=== PATIENT | female | born 1960 | race Caucasian/White ===

== ENCOUNTER 2022-06-27 12:03 | Outpatient (CLI) | payer BC, SELFPAY ==
[2022-06-27 13:43] LABS: Chloride* 100 mmol/L (96-114)
[2022-06-27 13:44] LABS: Albumin* 4.2 g/dL (3.3-5.0); Sodium* 136 mmol/L (135-149)
[2022-06-27 13:45] LABS: Potassium* 4.2 mmol/L (3.6-5.1)
[2022-06-27 13:46] LABS: Cholesterol* 221 mg/dL (90-199)
[2022-06-27 13:47] LABS: Alanine Aminotransferase* 29 U/L (4-35); Alkaline Phosphatase* 70 U/L (40-150); Aspartate Amino Transferase* 35 U/L (12-35); Bilirubin Total* 0.6 mg/dL (0.1-1.5); Blood Urea Nitrogen* 15 mg/dL (7-30); Calcium* 9.1 mg/dL (8.4-10.6); Carbon Dioxide* 30 mmol/L (20-32); Creatinine* 0.7 mg/dL (0.5-1.5); Estimated Glomerular Filt Rate 100 ml/min; Glucose* 98 mg/dL (60-115); Total Protein* 6.6 g/dL (6.0-8.3); Triglycerides* 107 mg/dL (40-149)
[2022-06-27 13:48] LABS: HDL Cholesterol* 68 mg/dL (>=50); LDL Cholesterol Calculated 132 mg/dL (<100)
== END 2022-06-27 12:04 | disposition home or self-care (01) ==
PROVIDERS: PCP Physician Assistant Medical; Visit Provider Physician Assistant Medical
DX: Z00.00 Encounter for general adult medical examination without abnormal findings (principal); Z13.6 Encounter for screening for cardiovascular disorders
CPT/HCPCS: 80053; 80061

== ENCOUNTER 2022-06-28 14:00 | Outpatient (CLI) | payer BC, SELFPAY ==
--- NOTE | 2022-06-28 14:07 | CRLHL7_ITS ---
For Patients: As a result of the Century Cures Act, medical imaging exams and procedure reports are released immediately into your electronic medical record. You may view this report before your referring provider. If you have questions, please contact your health care provider. INDICATION: f/u thyroid nodules. Large nodule on the right has been previously biopsied and was benign 04/28/2021. COMPARISON: 04/15/2021, 05/14/2020, 06/10/2019 TECHNIQUE: Giron scale and color Doppler images were acquired of the thyroid gland. FINDINGS: Similar morphology in size of the circumscribed nodule within the midportion of the right thyroid lobe measuring 3.8 x 2.4 x 2.8 cm, previously measuring 3.6 x 2.5 x 2.9 cm. Blood flow is present within this nodule, as before. Stable hypoechoic nodule within the superior pole of the left thyroid lobe measuring 9 x 5 x 8 millimeters, previously measuring 9 x 5 x 7 millimeters. Stable cystic nodule upper pole left thyroid lobe measuring 6 x 3 x 4 millimeters. Additional hypoechoic nodule measuring 4 x 3 x 4 millimeters within the left thyroid lobe. Thyroid echotexture heterogeneous. Enlarged right thyroid lobe with lobular contour. Right thyroid lobe measures 4.9 x 2.4 x 2.6 cm and left thyroid lobe measures 4.4 x 1.2 x 1.4 cm. Isthmus measures 2 millimeters. IMPRESSION: Stable solid nodule midportion right thyroid lobe measuring 3.8 cm. Dictated by Francisco Kay MD @ 06/28/2022 3:13:28 PM (Electronically Signed)
== END 2022-06-28 14:01 | disposition home or self-care (01) ==
LOC: US 14:01
PROVIDERS: PCP Physician Assistant Medical; Visit Provider Internal Medicine Endocrinology, Diabetes & Metabolism
DX: E04.1 Nontoxic single thyroid nodule (principal)
CPT/HCPCS: 76536

== ENCOUNTER 2022-07-25 14:44 | Outpatient (CLI) | payer BC, SELFPAY ==
--- NOTE | 2022-07-25 14:40 | CRLHL7_ITS ---
For Patients: As a result of the Century Cures Act, medical imaging exams and procedure reports are released immediately into your electronic medical record. You may view this report before your referring provider. If you have questions, please contact your health care provider. BILATERAL SCREENING MAMMOGRAM WITH COMPUTER-AIDED DETECTION TECHNIQUE: CC, MLO and Implant displaced views were obtained. These mammographic images have been obtained using full-field digital technique. These mammographic images were interpreted with the benefit of computer-aided detection. COMPARISON FILM: 11/19/20, 01/16/19, 12/21/17. FINDINGS: There are scattered areas of fibroglandular density IMPRESSION: There is no radiographic evidence for malignancy. ASSESSMENT: BI-RADS Category 2: Benign RECOMMENDATION: Routine screening mammogram in 1 year. A lay language report of this examination will be provided to the patient. Francisco Kay M.D. Diagnostic Radiologist [email or web address] JULISSA/Dictated by: Francisco Kay MD @ 07/26/2022 8:45:00 AM (Electronically Signed)
== END 2022-07-25 14:45 | disposition home or self-care (01) ==
LOC: MAMMO 14:45
PROVIDERS: PCP Physician Assistant Medical; Visit Provider Physician Assistant Medical
DX: Z12.31 Encounter for screening mammogram for malignant neoplasm of breast (principal)
CPT/HCPCS: 77067

== ENCOUNTER 2024-06-04 09:28 | Outpatient (CLI) | payer BC, SELFPAY ==
--- NOTE | 2024-06-04 10:40 | W.ANESCHARGE ---
Anesthesia Charges Start Date/Time Anesthesia Start Date: 06/04/24 Anesthesia Start Time: 10:13 Stop Date/Time Anesthesia Stop Date: 06/04/24 Anesthesia Stop Time: 10:40
--- NOTE | 2024-06-04 10:43 | W.ANESCHARGE ---
Anesthesia Charges Start Date/Time Anesthesia Start Date: 06/04/24 Anesthesia Start Time: 10:13 Stop Date/Time Anesthesia Stop Date: 06/04/24 Anesthesia Stop Time: 10:40
== END 2024-06-04 09:29 | disposition home or self-care (01) ==
LOC: OP CLINIC 09:30
PROVIDERS: PCP Physician Assistant Medical; Visit Provider Surgery
DX: Z12.11 Encounter for screening for malignant neoplasm of colon (principal); K63.5 Polyp of colon; Z83.719 Family history of colon polyps, unspecified
CPT/HCPCS: 00811; 45385; 88305; J2704

== ENCOUNTER 2024-07-18 13:52 | Outpatient (CLI) | payer BC, SELFPAY | END 2024-07-18 13:53 | disposition home or self-care (01) | PROVIDERS: PCP Physician Assistant Medical; Visit Provider Nurse Practitioner Family | DX: E78.5 Hyperlipidemia, unspecified (principal); E04.1 Nontoxic single thyroid nodule | CPT/HCPCS: 80061; 84439; 84443; 84481 ==

== ENCOUNTER 2024-07-20 08:04 | Outpatient (CLI) | payer BC, SELFPAY | END 2024-07-20 08:05 | disposition home or self-care (01) | LOC: NFLDREF 07-27 23:55 | PROVIDERS: PCP Physician Assistant Medical; Referring Provider Physician Assistant Medical; Visit Provider Physician Assistant Medical | DX: R19.7 Diarrhea, unspecified (principal) | CPT/HCPCS: 87505 ==

== ENCOUNTER 2024-07-23 11:15 | Outpatient (RCR) | payer BC, SELFPAY | END 2024-11-20 15:58 | disposition home or self-care (01) | PROVIDERS: PCP Physician Assistant Medical; Visit Provider Emergency Medicine | DX: R42 Dizziness and giddiness (principal); Z51.89 Encounter for other specified aftercare | CPT/HCPCS: 97112; 97140; 97161 ==

== ENCOUNTER 2025-03-08 10:00 | Outpatient (CLI) | payer BC, SELFPAY | END 2025-03-08 10:01 | disposition home or self-care (01) | LOC: NFLDREF 03-11 06:49 | PROVIDERS: PCP Physician Assistant Medical; Referring Provider Physician Assistant Medical; Visit Provider Family Medicine | DX: R35.0 Frequency of micturition (principal); R30.0 Dysuria; R39.9 Unspecified symptoms and signs involving the genitourinary system; N94.89 Other specified conditions associated with female genital organs and menstrual cycle; R19.7 Diarrhea, unspecified; N76.0 Acute vaginitis | CPT/HCPCS: 87086 ==

== ENCOUNTER 2025-03-10 16:40 | Outpatient (CLI) | payer BC, SELFPAY ==
[2025-03-11 00:38] LABS: Chlamydia DNA Amplified* NOT DETECTED (No Detected); GC DNA Amplified* NOT DETECTED (No Detected)
[2025-03-13 00:19] LABS: HPV Source Cervix; HPV, High Risk by TMA Not Detected
[2025-03-21 14:18] LABS: Pap Test Reviewed by Path Done
== END 2025-03-10 16:41 | disposition home or self-care (01) ==
PROVIDERS: PCP Physician Assistant Medical; Visit Provider Physician Assistant Medical
DX: R10.2 Pelvic and perineal pain (principal); R50.9 Fever, unspecified; R53.83 Other fatigue; N89.8 Other specified noninflammatory disorders of vagina; Z11.3 Encounter for screening for infections with a predominantly sexual mode of transmission; Z11.51 Encounter for screening for human papillomavirus (HPV)
CPT/HCPCS: 87086; 87491; 87591; 87624; 87625; 88141; 88142

== ENCOUNTER 2025-03-12 12:16 | Emergency (ER) | payer BC, SELFPAY ==
--- OUTSIDE RECORDS SUMMARY | 2025-03-12 12:18 | XMS_ITS | Encounter Summary ---
Author Organization [place] Address [facility] [place] [address] Care Team Providers Care Telemarketer Name Role Phone Nannette Eng MD Unavailable [phone] Ivonne Shea DO Unavailable [phone] Sherita Stephens PA-C Unavailable [phone] Sherita Stephens PA-C Unavailable [phone] [facility] Unavailabl e Keri Malave PA-C Primary Care Pr ovider Keri Malave PA-C Unavailable Encounter Details Date Type Department Care Team (Late st Contact Info) Description 03/26/2024 MyC Medical Advice [facility] [address] [place] [address] Nilda Fernandez Social History Tobacco Use Types Packs/Day Years Used Date Smoking Tobacco: Never Passive Smoke Exposure: Never Smokeless Tobacco: Never Alcohol Use Standard Drinks/Week Comments Yes 0 (1 standard drink = 0.6 oz pur e alcohol) Several glasses of wine/week Social Connection and Isolat ion Panel [NHANES] Answer Date Recorded In a typical week, how many times do you talk on the phone with family, friends, or neighbors? More than three times a week 05/25/2023 How often do you get togethe r with friends or relatives? Twice a week 05/25/2023 How often do you attend chur ch or scientology services? Never 05/25/2023 Do you belong to any clubs o r organizations such as scientologist groups, unions, fraternal or athletic groups, or school groups? No 05/25/2023 Attends Club or Organization Meetings Not on christine e 05/25/2023 Are you , , di vorced, , never , or living with a partner? 05/25/2023 AUDIT-C Answer Date Recorded Q1: How often do you have a drink containing alcohol? 4 or more times a week 05/25/2023 Q2: How many drinks containi ng alcohol do you have on a typical day when you are drinking? 1 or 2 Q3: How often do you have si x or more drinks on one occasion? Never 05/25/2023 Overall Financial Resource Strain (CARDIA) Answe r Date Recorded How hard is it for you to pa y for the very basics like food, housing, medical care, and heating? Not hard at all 05/25/2023 PHQ-2 Answer Date Recorded PHQ-2 Score 0 03/20/2024 [facility] - Occupational Stress Questionnaire Answer Date Recorded Do you feel stress - tense, restless, nervous, or anxious, or unable to sleep at night because your mind is troubled all the time - these days? Not at all 05/25/2023 Exercise Vital Sign Answer Date Recorde d On average, how many days pe r week do you engage in moderate to strenuous exercise (like a brisk walk)? 7 days 05/25/2023 On average, how many minutes do you engage in exercise at this level? 60 min 05/25/2023 Hunger Vital Sign Answer Date Recorded Within the past 12 months, y ou worried that your food would run out before you got the money to buy more. Never true 05/25/20 23 Within the past 12 months, t he food you bought just didn't last and you didn't have money to get more. Never true 05/25/2023 PRAPARE - Transportation Answer Date Re corded In the past 12 months, has l ack of transportation kept you from medical appointments or from getting medications? No 05/13 In the past 12 months, has l ack of transportation kept you from meetings, work, or from getting things needed for daily living? No 05/25/2023 Housing Stability Vital Sign Answer Roque e Recorded In the last 12 months, was t here a time when you were not able to pay the mortgage or rent on time? No 05/25/2023 In the last 12 months, how many places have you lived? 1 05/25/2023 In the last 12 months, was t here a time when you did not have a steady place to sleep or slept in a retirement (including now)? No 05/25/2023 Adolescent Education Answer Date Record ed Getting School Help Needed Not on file 08/11 Interpersonal Safety Answer Date Record ed Do you feel physically and e motionally safe where you currently live? Yes 03/20/2024 Within the past 12 months, h ave you been hit, slapped, kicked or otherwise physically hurt by someone? No 03/20/2024 Within the past 12 months, h ave you been humiliated or emotionally abused in other ways by your partner or ex-partner? 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 Gender Identity Not on file Sexual Orientation Not on file documented as of this encounter Plan of Treatment Not on file documented as of this encounter Visit Diagnoses Not on filedocumented in this encounter Care Teams Telemarketer Relationship Specialty Start Date End Date Keri Malave PA-C [address] [place] [address] PCP - General Family Medicine 03/20/24 Nannette Eng MD SURGICAL CONSULTS, BRYCE [address] [place], [place] [address] Assigned Surgical Provider 09/03/22 03/04/25 Ivonne Shea DO [address] [place] [address] Physician Cardiovascular Disease 05/26/23 Sherita Stephens PA-C [address] [address] Physician Master Control Engineer Cardiology 08/10/23 Sherita Stephens PA-C [address] [place] [address] Assigned Heart and Vascular Provider 12/07/23 [facility] [address] [place] [address] Assigned PCP 03/05/24 04/03/24 Keri Malave PA-C [address] [place] [address] Assigned PCP 04/04/24 documented as of this encounter
--- OUTSIDE RECORDS SUMMARY | 2025-03-12 12:18 | XMS_ITS | Encounter Summary ---
Author Organization [address] Address [address] [place] [address]. [place] [address] Care Team Providers Care Director Of Cardiac Rehabilitation Name Role Phone Nannette Eng MD Unavailable [phone] Ivonne Shea DO Unavailable [phone] Sherita Stephens PA-C Unavailable [phone] Sherita Stephens PA-C Unavailable [phone] Keri Malave PA-C Primary Care Pr ovider Keri Malave PA-C Unavailable Encounter Details Date Type Department Care Team (Late st Contact Info) Description 05/08/2024 MyC Medical Advice [facility] [address] [place] [address] Cris Dey RN Social History Tobacco Use Types Packs/Day Years [...] week 05/25/2023 How often do you attend [facility] or hindu services? Never 05/25/2023 Do you belong to any clubs o r organizations such as sikh groups, unions, fraternal or athletic groups, or [...] Answer Date Recorded PHQ-2 Score 0 03/20/2024 [facility] of Occupat ional [facility] - Occupational Stress Questionnaire Answer Date [...] place to sleep or slept in a fci (including now)? 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 Gender Identity Not on file Sexual Orientation Not on file documented as of this encounter Plan of Treatment Not on file documented as of this encounter Visit Diagnoses Not on filedocumented in this encounter Care Teams Director Of Cardiac Rehabilitation Relationship Specialty Start Date End Date Keri Malave PA-C [address] [place] [address] PCP - General Family Medicine 03/20/24 Nannette Eng MD SURGICAL CONSULTS, BRY[address] [place], [place] [address] Assigned Surgical Provider 09/03/22 03/04/25 Ivonne Shea DO [address] [place] [address] Physician Cardiovascular Disease 05/26/23 Sherita Stephens PA-C [address] [address] Physician Decorating Machine Operator Cardiology 08/10/23 Sherita Stephens PA-C [address] [address] Assigned Heart and Vascular Provider 12/07/23 Keri Malave PA-C [address] [place] [address] Assigned PCP 04/04/24 documented as of this encounter
--- OUTSIDE RECORDS SUMMARY | 2025-03-12 12:19 | XMS_ITS | Encounter Summary ---
Author Organization [place] Address [facility] [place] [address] Care Team Providers Care Yoke Setter Name Role Phone Dillon Granados PA-C Primary Care Provid er Keri Malave PA-C Primary Care Pr ovider Unknown, Provider [facility] Provider [facility] Primary Care Provider Nannette Eng MD Unavailable [phone] Ivonne Shea DO Unavailable [phone] Tresa Marroquin NP Unavailable Unavailable [facility] Primary Ca re Provider Sherita Stephens PA-C Unavailable [phone] Ivonne Shea DO Unavailable [phone] Sherita Stephens PA-C Unavailable [phone] [facility] Unavailabl e Keri Malave PA-C Primary Care Pr ovider Keri Malave PA-C Unavailable Encounter Details Date Type Department Care Team (Late st Contact Info) Description 06/06/2012 MyC Medical Advice [facility] [address] [place] [address] Angeline Mcdonald Social History Tobacco Use Types Packs/Day Years Used Date Smoking Tobacco: Never Smokeless Tobacco: Never Alcohol Use Standard Drinks/Week Comments Yes 0 (1 standard drink = 0.6 oz pur e alcohol) Several glasses of wine/week Comments No Sex and Gender Information Value Date Recorded Sex Assigned at Not on file 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 Gender Identity Not on file Sexual Orientation Not on file documented as of this encounter Plan of Treatment Not on file documented as of this encounter Visit Diagnoses Not on filedocumented in this encounter Care Teams Yoke Setter Relationship Specialty Start Date End Date Dillon Granados PA-C [address] [place] [address] PCP - General 04/07/04 09/16/13 Keri Malave PA-C [address] [place] [address] PCP - General Physician Monkey Breeder 09/17/13 08/09/15 Unknown, Provider PCP - General 08/10/15 10/21/[address] [address] PCP - General 10/22/15 06/26/19 [facility] [address] [place] [address] PCP - General 06/27/19 08/01/23 [facility] [address] [place] [address] PCP - General 08/02/23 03/19/24 Keri Malave PA-C [address] [place] [address] PCP - General Family Medicine 03/20/24 Nannette Eng MD SURGICAL CONSULTS, BRYCE [address] [address] Assigned Surgical Provider 09/03/22 03/04/25 Ivonne Shea DO [address] [place] [address] Physician Cardiovascular Disease 05/26/23 Tresa Marroquin NP Assigned PCP 06/03/23 03/04/24 Sherita Stephens PA-C [address] [place] [address] Physician Monkey Breeder Cardiology 08/10/23 Ivonne Shea DO [address] [place] [address] Assigned Heart and Vascular Provider 07/22/23 12/06/23 Sherita Stephens PA-C [address] [place] [address] Assigned Heart and Vascular Provider 12/07/23 [facility] [address] [address] Assigned PCP 03/05/24 04/03/24 Keri Malave PA-C [address] [place] [address] Assigned PCP 04/04/24 documented as of this encounter
--- OUTSIDE RECORDS SUMMARY | 2025-03-12 12:19 | XMS_ITS | Encounter Summary ---
Author Organization [place] Address [facility] [place] [address] Care Team Providers Care Whanau Support Worker Name Role Phone Keri Malave PA-C Primary Care Pr ovider Unknown, Provider Primary Care Provider [facility] Primary Care Provider [facility] Primary Care Provider Nannette Eng MD Unavailable [phone] Ivonne Shea DO Unavailable [phone] Tresa Marroquin NP Unavailable Unavailable [facility] Primary Ca re Provider Sherita Stephens PA-C Unavailable [phone] Ivonne Shea DO Unavailable [phone] Sherita Stephens PA-C Unavailable [phone] [facility] Unavailabl e Keri Malave PA-C Primary Care Pr ovider Keri Malave PA-C Unavailable Reason for Visit * Reason Onset Date Comments Outreach 09/20/2013 [facility] Encounter Details Date Type Department Care Team (Late st Contact Info) Description 09/20/2013 Telephone [facility] [address] [place] [address] Keri Malave PA-C [address] [place] [address] Outreach ([facility]) Social History Tobacco Use Types Packs/Day Years [...] week 05/25/2023 How often do you attend [facility] or judaism services? Never 05/25/2023 Do you belong to any clubs o r organizations such as roman catholic groups, unions, fraternal or athletic groups, or [...] when you are drinking? 1 or 2 3 Q3: How often do you have si x or more drinks on one occasion? Never 05/25/2023 Overall Financial Resource Strain (CARDIA) Answe r Date Recorded How hard is it for you to pa y for the very basics like food, housing, medical care, and heating? 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 No / Unsure 08/17/2023 9:47 AM CDT documented as of this encounter Miscellaneous Notes * Telephone Encounter - Shalom Ferrer - 09/20/2013 2:01 PM CST 09/20/2013 Call Regarding Preventive Health Screening Colonoscopy Attempt 1 Message Comments: per patient will call back to schedule after looking into work schedule Outreach Reconciliation Machine Operator rbg FORCE ANALYST documented in this encounter Plan of Treatment Not on file documented as of this encounter Visit Diagnoses Not on filedocumented in this encounter Care Teams Whanau Support Worker Relationship Specialty Start Date End Date Keri Malave PA-C [address] [place] [address] PCP - General Physician Wax Room Supervisor 09/17/13 08/09/15 Unknown, Provider PCP - General 08/10/15 10/21/15 [facility] [address] PCP - General 10/22/15 06/26/19 [facility] [address] [facility] [place] [address] PCP - General 06/27/19 08/01/23 [facility] - [facility] [id number] [place] [address] PCP - General 08/02/23 03/19/24 Keri Malave PA-C [address] [place] [address] PCP - General Family Medicine 03/20/24 Nannette Eng MD SURGICAL CONSULTS, BRYCE [address] [address] Assigned Surgical Provider 09/03/22 03/04/25 Ivonne Shea DO [address] [place] [address] Physician Cardiovascular Disease 05/26/23 Tresa Marroquin NP Assigned PCP 06/03/23 03/04/24 Sherita Stephens PA-C [address] [place] [address] Physician Wax Room Supervisor Cardiology 08/10/23 Ivonne Shea DO [address] [place] [address] Assigned Heart and Vascular Provider 07/22/23 12/06/23 Sherita Stephens PA-C [address] [place] [address] Assigned Heart and Vascular Provider 12/07/23 [facility] [address] [place] [address] Assigned PCP 03/05/24 04/03/24 Keri Malave PA-C [address] [place] [address] Assigned PCP 04/04/24 documented as of this encounter
--- OUTSIDE RECORDS SUMMARY | 2025-03-12 12:19 | XMS_ITS | Encounter Summary ---
Author Organization [place] Address [facility] [place] [address] Care Team Providers Care Business Development Name Role Phone Nannette Eng MD Unavailable [phone] Ivonne Shea DO Unavailable [phone] Tresa Marroquin NP Unavailable Unavailable [facility] Primary Ca re Provider Sherita Stephens PA-C Unavailable [phone] Sherita Stephens PA-C Unavailable [phone] Clinic - [facility] Unavailabl e Keri Malave PA-C Primary Care Pr ovider Keri Malave PA-C Unavailable Encounter Details Date Type Department Care Team (Late st Contact Info) Description 01/08/[address] [facility] [address] [place] [address] Naa Leon, [facility] Social History Tobacco Use Types Packs/Day Years [...] 05/25/2023 How often do you attend chur or islam services? Never 05/25/2023 Do you belong to any clubs o r organizations such as jew groups, unions, fraternal or athletic groups, or [...] PHQ-2 Answer Date Recorded PHQ-2 Score 0 05/25/2023 [facility] of Occupat ional Health - Occupational Stress [...] School Help Needed Not on file 08/11 Comments No Sex and Gender Information Value Date Recorded Sex Assigned at Not on file Legal Sex Female 4:32 AM PROJ MGR Gender Identity Not on file Sexual Orientation Not on file documented as of this encounter Plan of Treatment Not on file documented as of this encounter Visit Diagnoses Not on filedocumented in this encounter Care Teams Business Development Relationship Specialty Start Date End Date Clinic - [facility] [address] [place] [address] PCP - General 08/02/23 03/19/24 Keri Malave PA-C [address] [place] [address] PCP - General Family Medicine 03/20/24 Nannette Eng MD SURGICAL CONSULTS, BRYCE [address] [place] [address] Assigned Surgical Provider 09/03/22 03/04/25 Ivonne Shea DO [address] [place] [address] Physician Cardiovascular Disease 05/26/23 Tresa Marroquin NP Assigned PCP 06/03/23 03/04/24 Sherita Stephens PA-C [address] [address] Physician Rack Puncher Cardiology 08/10/23 Sherita Stephens PA-C [address] [address] Assigned Heart and Vascular Provider 12/07/23 [facility] [address] [place] [address] Assigned PCP 03/05/24 04/03/24 Keri Malave PA-C [address] [place] [address] Assigned PCP 04/04/24 documented as of this encounter
--- OUTSIDE RECORDS SUMMARY | 2025-03-12 12:19 | XMS_ITS | Clinical Summary ---
Author Organization [facility] Address [address] [place] [address] Care Team Providers Care Outpatient Services Director Name Role Phone Unassigned, Provider Primary Care Provider Unava ilable Source Comments You are receiving this document as you are listed as the primary care provider,follow-up provider, or the patient has been referred to you for consultation.This is in compliance with the Medicare and[facility] St[facility] Medical Centercaid EHR Incentive Program,which states Providers who transition their patient to another setting of careor provider of care or refers their patient to another provider of care shouldprovide summary care record for each transition of care or referral. [facility] Allergies No known active allergies Medications lisinopril (ZESTRIL) 5 MG tablet Take 5 mg by mouth daily. 03/23/2022 Active ALBUterol sulfate HFA 108 (90 Base) MCG/ACT inhaler Inhale 1-2 Puffs every 4 hours as needed for Wheezing. 1 Each 1 04/29/2022 Active guaiFENesin-code ine (ROBITUSSINAC) 100-10 MG/5ML solution Take 5 mL by mouth every 4 hours as needed. 118 mL 04/29/2022 Active Active Problems No known active problems Social History Tobacco Use Types Packs/Day Years Used Date Smoking Tobacco: Never Assessed Comments No Sex and Gender Information Value Date Recorded Sex Assigned at Not on file Legal Sex Female 5:37 AM CDT Gender Identity Not on file Sexual Orientation Not on file Last Filed Vital Signs Vital Sign Reading Time Taken Comments Blood Pressure 111/82 04/29/2022 9:30 AM CDT Pulse 80 04/29/2022 9:30 AM CDT Temperature 36.6 C (97.9 F) 04/29/2022 9:30 AM CDT Respiratory Rate 18 04/29/2022 9:30 AM CDT Oxygen Saturation 100% 04/29/2022 9:30 AM CDT Inhaled Oxygen Concentration - - Weight 61.7 kg (136 lb) 08/06/2003 6:15 PM CDT Height - - Body Mass Index - - Plan of Treatment Health Maintenance Due Date Last Done Comments Cervical Cancer Screening Due 1962 Colon Cancer Screening Plan Due 1962 Hep C Screening (Preventive Services) 1962 Mammogram 1962 HIV Screening (Preventive Services) 1978 Adult Preventive Visit 1980 Cholesterol 2007 Pneumococcal Vaccine 50+ Yrs (1 of 1 - PCV) 2012 Zoster/Shingles Vaccine (1 of 2) 2012 COVID-19 Vaccine (4 - season) 2024 10/08/2021, 02/23/2021, 02/02/2021 Influenza Vaccine (#1) 2024 , 09/04/2020, 10/04/2019, Additional history exists DTaP/Tdap/Td Vaccine (3 - Tdap) 09/22/2031 09/22/2021, 09/29/2008 RSV Vaccine (1 - 1-dose 75+ series) 2037 HepA Vaccine Aged Out No longer eligi ble based on patient's age to complete this topic HepB Vaccine Aged Out No longer eligi ble based on patient's age to complete this topic Hib Vaccine Aged Out No longer eligi ble based on patient's age to complete this topic IPV (Polio) Vaccine Aged Out No longe r eligible based on patient's age to complete this topic MCV4 Vaccine Aged Out No longer eligi ble based on patient's age to complete this topic Meningococcal B Vaccine Aged Out No l onger eligible based on patient's age to complete this topic Insurance [facility] [place] [address] Care Teams Outpatient Services Director Relationship Specialty Start Date End Date Unassigned, Provider [address] [place] [address] PCP - General 08/28/02
--- OUTSIDE RECORDS SUMMARY | 2025-03-12 12:19 | XMS_ITS | Encounter Summary ---
Author Organization [place] Address formerly [facility] [place] [address] Care Team Providers Care Radar Systems Engineer Name Role Phone Dillon Granados PA-C Primary Care Provid er Keri Malave PA-C Primary Care Pr ovider Unknown, Provider Primary Care Provider [facility] [place] [facility] Provider [facility] Primary Care Provider Nannette Eng MD Unavailable [phone] Ivonne Shea DO Unavailable [phone] Tresa Marroquin NP Unavailable Unavailable [facility] Primary Ca re Provider Sherita Stephens PA-C Unavailable [phone] Ivonne Shea DO Unavailable [phone] Sherita Stephens PA-C Unavailable [phone] [facility] Unavailabl e Keri Malave PA-C Primary Care Pr ovider Keri Malave PA-C Unavailable Encounter Details Date Type Department Care Team (Late st Contact Info) Description 05/30/2013 MyC Medical Advice [facility] [address] [place] [id number] Angeline Mcdonald Social History Tobacco Use Types Packs/Day Years Used Date Smoking Tobacco: Never Smokeless Tobacco: Never Alcohol Use Standard Drinks/Week Comments Yes 0 (1 standard drink = 0.6 oz pur e alcohol) Several glasses of wine/week Comments No Sex and Gender Information Value Date Recorded Sex Assigned at Not on file 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 Gender Identity Not on file Sexual Orientation Not on file documented as of this encounter Plan of Treatment Not on file documented as of this encounter Visit Diagnoses Not on filedocumented in this encounter Care Teams Radar Systems Engineer Relationship Specialty Start Date End Date Dillon Granados PA-C [address] [place] [address] PCP - General 04/07/04 09/16/13 Keri Malave PA-C [address] [place] [address] PCP - General Physician Fuel Efficient Aircraft Designer 09/17/13 08/09/15 Unknown, Provider PCP - General 08/10/15 10/21/[address] [address] PCP - General 10/22/15 06/26/19 [facility] [address] [place] [address] PCP - General 06/27/19 08/01/23 [facility] [address] [place] [address] PCP - General 08/02/23 03/19/24 Keri Malave PA-C [address] [place] [address] PCP - General Family Medicine 03/20/24 Nannette Eng MD SURGICAL CONSULTS, BRYCE MURO [address] [address] Assigned Surgical Provider 09/03/22 03/04/25 Ivonne Shea DO [address] [place] [address] Physician Cardiovascular Disease 05/26/23 Tresa Marroquin NP Assigned PCP 06/03/23 03/04/24 Sherita Stephens PA-C [address] [place] [address] Physician Fuel Efficient Aircraft Designer Cardiology 08/10/23 Ivonne Shea DO [address] [place] [address] Assigned Heart and Vascular Provider 07/22/23 12/06/23 Sherita Stephens PA-C [address] [place] [address] Assigned Heart and Vascular Provider 12/07/23 [facility] [address] [place] [place] [address] Assigned PCP 03/05/24 04/03/24 Keri Malave PA-C [address] [place] [address] Assigned PCP 04/04/24 documented as of this encounter
--- OUTSIDE RECORDS SUMMARY | 2025-03-12 12:19 | XMS_ITS | Encounter Summary ---
Author Organization [place] Address [facility] [place] [place] [address] Care Team Providers Care Unit Supervisor Name Role Phone Nannette Eng MD Unavailable [phone] Ivonne Shea DO Unavailable [phone] Tresa Marroquin NP Unavailable Unavailable [facility] Primary Ca re Provider Sherita Stephens PA-C Unavailable [phone] Sherita Stephens PA-C Unavailable [phone] Clinic - [facility] Unavailabl e Keri Malave PA-C Primary Care Pr ovider Keri Malave PA-C Unavailable Encounter Details Date Type Department Care Team (Late st Contact Info) Description 01/08/2024 MyC Medical Advice [facility] [address] [place] [address] Naa Leon, [facility] Social History Tobacco Use Types Packs/Day Years [...] How often do you attend chur or gnosticism services? 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 Gender Identity Not on file Sexual Orientation Not on file documented as of this encounter Plan of Treatment Not on file documented as of this encounter Visit Diagnoses Not on filedocumented in this encounter Care Teams Unit Supervisor Relationship Specialty Start Date End Date Clinic - [facility] [address] [place] [address] PCP - General 08/02/23 03/19/24 eKri Malave PA-C [address] [place] [address] PCP - General Family Medicine 03/20/24 Nannette Eng MD SURGICAL CONSULTS, BRYCE [address] [place] [address] Assigned Surgical Provider 09/03/22 03/04/25 Ivonne Shea DO [address] [place] [address] Physician Cardiovascular Disease 05/26/23 Tresa Marroquin NP Assigned PCP 06/03/23 03/04/24 Sherita Stephens PA-C [address] [address] Physician Test Desk Trouble Locator Cardiology 08/10/23 Sherita Stephens PA-C [address] [address] Assigned Heart and Vascular Provider 12/07/23 [facility] [address] [place] [address] Assigned PCP 03/05/24 04/03/24 Keri Malave PA-C [address] [place] [address] Assigned PCP 04/04/24 documented as of this encounter
--- OUTSIDE RECORDS SUMMARY | 2025-03-12 12:19 | XMS_ITS | Encounter Summary ---
Author Organization [place] Address [facility] [place] [address] Care Team Providers Care Major Case Detective Name Role Phone Keri Malave PA-C Primary Care Pr ovider Unknown, Provider Primary Care Provider [facility] Primary Care Provider [facility] Primary Care Provider Nannette Eng MD Unavailable [phone] Ivonne Shea DO Unavailable + [phone] Tresa Marroquin NP Unavailable Unavailable [facility] Primary Ca re Provider Sherita Stephens PA-C Unavailable [phone] Ivonne Shea DO Unavailable [phone] Sherita Stephens PA-C Unavailable [phone] [facility] Unavailabl e Keri Malave PA-C Primary Care Pr ovider Keri Malave PA-C Unavailable Encounter Details Date Type Department Care Team (Late st Contact Info) Description 12/24/2013 MyC Medical Advice [facility] [address] [place] [address] 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 Gender Identity Not on file Sexual Orientation Not on file documented as of this encounter Plan of Treatment Not on file documented as of this encounter Visit Diagnoses Not on filedocumented in this encounter Care Teams Major Case Detective Relationship Specialty Start Date End Date Keri Malave PA-C [address] [place] [address] PCP - General Physician Record Changer Tester 09/17/13 08/09/15 Unknown, Provider PCP - General 08/10/15 10/21/15 [facility] [address] [place] [address] PCP - General 10/22/15 06/26/19 [facility] [address] [place] [address] PCP - General 06/27/19 08/01/23 [facility] [id number] [place] [address] PCP - General 08/02/23 03/19/24 Keri Malave PA-C [address] [place] [address] PCP - General Family Medicine 03/20/24 Nannette Eng MD SURGICAL CONSULTS, PA [address] [place] [address] Assigned Surgical Provider 09/03/22 03/04/25 Ivonne Shea DO [address] [place] [address] Physician Cardiovascular Disease 05/26/23 Tresa Marroquin NP Assigned PCP 06/03/23 03/04/24 Sherita Stephens PA-C [address] [address] Physician Record Changer Tester Cardiology 08/10/23 Ivonne Shea DO [address] [place] [address] Assigned Heart and Vascular Provider 07/22/23 12/06/23 Sherita Stephens PA-C [address] [address] Assigned Heart and Vascular Provider 12/07/23 [facility] [address] [place] [address] Assigned PCP 03/05/24 04/03/24 Keri Malave PA-C [address] [place] [address] Assigned PCP 04/04/24 documented as of this encounter
--- OUTSIDE RECORDS SUMMARY | 2025-03-12 12:19 | XMS_ITS | Encounter Summary ---
Author Organization [place] Address [facility] [place] [address] Care Team Providers Care Fiber Technologist Name Role Phone Nannette Eng MD Unavailable [phone] Ivonne Shea DO Unavailable [phone] Tresa Marroquin NP Unavailable Unavailable [facility] Primary Ca re Provider Sherita Stephens PA-C Unavailable [phone] Ivonne Shea DO Unavailable [phone] Sherita Stephens PA-C Unavailable [phone] [facility] Unavailabl e Keri Malave PA-C Primary Care Pr ovider Keri Malave PA-C Unavailable Encounter Details Date Type Department Care Team (Late st Contact Info) Description 08/18/2023 MyC Medical Advice [facility] [address] [place] [address] Naa Leon, [employer] Social History Tobacco Use Types Packs/Day Years [...] How often do you attend chur or yarsanism services? Never 05/25/2023 Do you belong to any clubs o r organizations such as worship groups, unions, fraternal or athletic groups, or [...] Answer Date Recorded PHQ-2 Score 0 05/25/2023 [facility] - Occupational [...] place to sleep or slept in a nursing home (including now)? 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 No / Unsure 08/17/2023 9:47 AM CDT documented as of this encounter Plan of Treatment Not on file documented as of this encounter Visit Diagnoses Not on filedocumented in this encounter Care Teams Fiber Technologist Relationship Specialty Start Date End Date Clinic - [facility] [id number] [place] [address] PCP - General 08/02/23 03/19/24 Keri Malave PA-C [address] [place] [address] PCP - General Family Medicine 03/20/24 Nannette Eng MD SURGICAL CONSULTS, [facility] [address] [address] Assigned Surgical Provider 09/03/22 03/04/25 Ivonne Shea DO [address] [place] [address] Physician Cardiovascular Disease 05/26/23 Tresa Marroquin NP Assigned PCP 06/03/23 03/04/24 Sherita Stephens PA-C [address] [address] Physician Forging Operator Cardiology 08/10/23 Ivonne Shea DO [address] [place] [address] Assigned Heart and Vascular Provider 07/22/23 12/06/23 Sherita Stephens PA-C [address] [address] Assigned Heart and Vascular Provider 12/07/23 [facility] [address] [place] [address] Assigned PCP 03/05/24 04/03/24 Keri Malave PA-C [address] [place] [address] Assigned PCP 04/04/24 documented as of this encounter
--- OUTSIDE RECORDS SUMMARY | 2025-03-12 12:19 | XMS_ITS | Encounter Summary ---
Author Organization [place] Address [address] [place] [address]. [place] [address] Care Team Providers Care Car Storer Name Role Phone Nannette Eng MD Unavailable Ivonne Shea DO Unavailable [phone] Sherita Stephens PA-C Unavailable Sherita Stephens PA-C Unavailable [phone] Keri Malave PA-C Primary Care Pr ovider Keri Malave PA-C Unavailable Encounter Details Date Type Department Care Team (Late st Contact Info) Description 06/20/2024 MyC Medical Advice [address] [address] Long Iyer DO [address] [place] [address] [id number] Social History Tobacco Use Types Packs/Day Years [...] How often do you attend chur or roman catholic services? Never 05/25/2023 Do you belong to any clubs o r organizations such as denominational groups, unions, fraternal or athletic groups, or [...] Answer Date Recorded PHQ-2 Score 0 03/20/2024 [facility] ional Health - [...] place to sleep or slept in a jail (including now)? 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 Gender Identity Not on file Sexual Orientation Not on file documented as of this encounter Plan of Treatment Not on file documented as of this encounter Visit Diagnoses Not on filedocumented in this encounter Care Teams Car Storer Relationship Specialty Start Date End Date Keri Malave PA-C [address] [place] [address] PCP - General Family Medicine 03/20/24 Nannette Eng MD SURGICAL CONSULTS, BRYCE [address] [place] [address] Assigned Surgical Provider 09/03/22 03/04/25 Ivonne Shea DO [address] [place] [address] Physician Cardiovascular Disease 05/26/23 Sherita Stephens PA-C [address] [place] [address] Physician Foot Setter Cardiology 08/10/23 Sherita Stephens PA-C [address] [place] [address] Assigned Heart and Vascular Provider 12/07/23 Keri Malave PA-C [address] [place] [address] Assigned PCP 04/04/24 documented as of this encounter
--- OUTSIDE RECORDS SUMMARY | 2025-03-12 12:19 | XMS_ITS | CONTINUITY OF CARE DOCUMENT ---
Author Name User, QIE Address [address] [place] [address] Drive [address] [place] [id number] Organization [facility] ter Address [address] [place] [address] [address] [place] [address] Phone [phone] Care Team Providers Care Director Of Institutional Research Name Role Phone User, QIE Unavailable Unavailable HISTORY OF MEDICATION USE Medication Instructions Status Dates Provider Indications Com ments Organization MULTI-VITAMIN DAILY ORAL TABLET po qd active Danisha Gutierrez RN,BSN RN,BSN, [address] [address] CLARITIN 10 MG ORAL CAPSULE po qd active Danisha Gutierrez RN,BSN RN,BSN, [address] [facility] [address]
--- OUTSIDE RECORDS SUMMARY | 2025-03-12 12:19 | XMS_ITS | Clinical Summary ---
Author Organization [facility] Address [address] [place] [address] Care Team Providers Care Events Assistant Name Role Phone Heshamrobert Ivonne Anisha ORTEGA Unavailable [phone] StebbSherita adams PA-C Unavailable StebbSherita adams PA-C Unavailable [phone] Keri Malave PA-C Primary Care Pr ovider Keri Malave PA-C Unavailable Allergies Active Allergy Reactions Criticality Noted Date Comments Fish Oil Hives 09/13/2010 Nuts 09/13/2010 Tree Nuts - ? Allergy Shellfish Allergy 08/29/2011 Medications ZYRTEC 10 MG OR TABSIndications: Allergic rhinitis, cause unspecified 1 TABLET DAILY 30 prn 7 Active meclizine (ANTIVERT) 25 MG tablet Take 1 tablet (25 mg) by mouth 3 times daily as needed for dizziness 20 tablet 9 Active multivitamin w/minerals (MULTI-VITAMIN) tablet Take 1 tablet by mouth daily Active magnesium gluconate (MAGONATE) 250 MG tablet Take 500 mg by mouth daily Active fluticasone (FLONASE ALLERGY RELIEF) 50 MCG/ACT nasal spray Eldon 2 sprays in nostril every 24 hours 2 Active guaiFENesin (MUCINEX) 600 MG 12 hr tablet Take 600 mg by mouth daily as needed for congestion 2 Active Probiotic, Lactobacillus, CAPS Take 1 capsule by mouth daily 2 Active ibuprofen (ADVIL/MOTRIN) 200 MG capsuleIndicatio ns:Non-toxic multinodular goiter Take 3 capsules (600 mg) by mouth every 6 hours as needed for fever 3 Active acetaminophen (TYLENOL) 500 MG tabletIndication s:Non-toxic multinodular goiter Take 2 tablets (1,000 mg) by mouth every 6 hours as needed for pain 3 Active albuterol (PROAIR HFA/PROVENTIL HFA/VENTOLIN HFA) 108 (90 Base) MCG/ACT inhalerIndicatio ns:Bronchitis Inhale 1-2 puffs into the lungs every 6 hours for 5 days 8.5 g 3 Active Additional Information Patient taking differently:1-2 puff Inhalation EVERY 6 HOURS,PRN, Reported on 03/20/2024 levothyroxine (SYNTHROID/LEVOT HROID) 50 MCG tablet Take 1 tablet by mouth daily at 2 pm 4 Active lisinopril (ZESTRIL) 5 MG tabletIndication s:Benign essential hypertension Take 1 tablet (5 mg) by mouth daily. 90 tablet 4 Active Active Problems Problem Noted Date Diagnosed Date Non-toxic multinodular goiter 07/23/2019 Pain in joint, multiple sites 06/16/2014 S/P LEEP of cervix 06/17/2013 Overview (06/17/2013): 1993 LEEP--yearly paps indicated through 2013 Pain in shoulder 12/14/2012 Idiopathic thrombocytopenia 05/22/2012 CARDIOVASCULAR SCREENING; LDL GOAL LESS THAN 160 04/19/2012 Allergic rhinitis 05/06/2004 Overview (08/13/2015): Problem list name updated by automated process. Provider to review WBC decreased Chronic idiopathic urticaria Resolved Problems Problem Noted Date Diagnosed Date Resolved Date Idiopathic urticaria 02/28/2011 011 Allergic reaction 02/17/2011 04/19/2012 Herpes zoster 09/13/2010 04/19/2012 Hyperlipidemia LDL goal <160 05/26/2010 04/19/2012 GERD (gastroesophageal reflux disease) 01/12/2010 04/19/2012 Encounters Date Type Department Care Team Description 01/09/2025 [facility] Medical Advice [facility] [id number] [place] [id number] Naa Leon, [facility] Panel Management from Last 3 Months Immunizations Name Administration Dates Next Due COVID-19 MONOVALENT 12+ (Pfizer) 10/08/2021,02/11,02/02/2021 Influenza (H1N1) 10/27/2009 Influenza (IIV3) PF 09/04/2013, 1,10/27/2009,2007 Influenza (prior to 2023) 10/27/2009 Influenza Vaccine 18-64 (Flublok) 09/04/2020, Influenza Vaccine >6 months,quad, PF ,08/01/2021,08/03/2017,2015,09/04/2013 TDAP Vaccine (Adacel) 09/29/2008 Td (Adult), Adsorbed 09/22/2021 Zoster recombinant adjuvante d (Shingrix) 05/25/2023 Family History Medical History Relation Comments Musculoskeletal Disorder Brother 1 spondyl olithesis Family History Negative Brother 2 Heart Disease Brother 2 heart attac k Heart Disease Brother 3 heart attac k Family History Negative Daughter 1 Family History Negative Daughter 2 Cardiovascular Father CABG age 63 (smo ker). First [place] age 62. A-Fib age 78. / age 77 from V-fib. Prostate Cancer Father Dx in his 70's Parkinsonism Maternal Grandfather Myocardial Infarction Maternal Grandmother heart attack C.A.D. Mother CABG x 3 at age 78 Lipids Mother Lipids Sister 1 Lipids Sister 2 2 of 4 sisters w ith hyperlipidemia Family History Negative Sister 3 C.A.D. Sister 4 Stent placed age 53 or 54 Family History Negative Son Relation Status Comments Brother 1 Alive Brother 2 Brother 3 Daughter 1 Alive Daughter 2 Alive Father Maternal Grandfather Maternal Grandmother Mother Alive Paternal Grandfather Paternal Grandmother Sister 1 Alive Sister 2 Alive Sister 3 Alive Sister 4 Son Alive Social History Tobacco Use Types Packs/Day Years Used Date Smoking Tobacco: Never Passive Smoke Exposure: Never Smokeless Tobacco: Never Tobacco Cessation:Counseling Given: Not Answered Alcohol Use Standard Drinks/Week Comments Yes 0 [...] week 05/25/2023 How often do [facility] or roman catholic services? Never 05/25/2023 Do you belong to any clubs o r organizations such as shinto groups, unions, fraternal or athletic groups, or [...] Answer Date Recorded PHQ-2 Score 0 03/20/2024 [facility] - Occupational Stress Questionnaire Answer Date [...] place to sleep or slept in a halfway (including now)? No 05/25/2023 Adolescent Education Answer [...] file Legal Sex Female 4:32 AM COMPLIANCE QUALITY PERFORMANCE ANALYST Gender Identity Not on file Sexual Orientation Not on file Last Filed Vital Signs Vital Sign Reading Time Taken Comments Blood Pressure 126/84 03/20/2024 10:57 AM CDT Pulse 95 03/20/2024 10:57 AM CDT Temperature 36.6 C (97.8 F) 03/20/2024 10:57 AM CDT Respiratory Rate 20 03/20/2024 10:57 AM CDT Oxygen Saturation 96% 03/20/2024 10:57 AM CDT Inhaled Oxygen Concentration - - Weight 76.7 kg (169 lb 1.6 oz) 03/20/2024 10:57 AM CDT Height 165.7 cm (5' 5.25) 03/20/2024 10:57 AM C DT Body Mass Index 27.92 03/20/2024 10:57 AM CDT Plan of Treatment Health Maintenance Due Date Last Done Comments CT COLONOGRAPHY 1960 FIT 1960 FLEX SIG 1960 sDNA (Cologuard) 1960 Pneumococcal Vaccine: 50+ Years (1 of 1 - PCV) 2012 ZOSTER IMMUNIZATION (2 of 2) 07/20/2023 05/25/2023 HPV TEST 09/04/2023 09/04/2020 PAP 09/04/2023 09/04/2020, 08/14, 06/06/2013, Additional history exists COLONOSCOPY 03/28/2024 03/28/2014, 03/28/2014 COLORECTAL CANCER SCREENING 03/28/2024 ANNUAL REVIEW OF HM ORDERS 05/25/2024 05/25/2023 YEARLY PREVENTIVE VISIT 05/25/2024 05/25/20 23, 06/16/2014, 06/06/2013, Additional history exists TSH W/FREE T4 REFLEX 05/29/2024 05/29/2023, 06/07/2013, 05/22/2012, Additional history exists COVID-19 Vaccine ( season) 2024 10/28/2022, 10/08/2021, 02/23/2021, Additional history exists INFLUENZA VACCINE (#1) 2024 , 08/01/2021, 09/04/2020, Additional history exists MAMMO SCREENING 11/07/2024 11/07/2023, 07/14, 11/19/2020, Additional history exists PHQ-2 (once per calendar year) 2024 03/20/2024, 05/25/2023 BMP 03/20/2025 03/20/2024, 08/11/2022, 05/29/2023, Additional history exists DIABETES SCREENING 03/20/2027 03/20/2024, 0 07/13/2023, 05/29/2023, Additional history exists ADVANCE CARE PLANNING 05/25/2028 05/25/2023 LIPID 05/29/2028 05/29/2023, 08/0 02/2014, 06/07/2013, Additional history exists DTAP/TDAP/TD IMMUNIZATION (3 - Td or Tdap) 09/22/2031 09/22/2021, 09/29/2008 RSV VACCINE (1 - 1-dose 75+ series) 2037 HIV SCREENING Completed 11/08/2006 HEPATITIS C SCREENING Completed 08/19/2010 HPV IMMUNIZATION Aged Out No longer e ligible based on patient's age to complete this topic MENINGITIS IMMUNIZATION Aged Out No l onger eligible based on patient's age to complete this topic Procedures Procedure Name Priority Date/Time Associated Diagnosis Comments COMPREHENSIVE METABOLIC PANEL Routine 03/20/2024 11:31 AM CDT RUQ abdominal pain MA SCREENING WITH IMPLANTS BILATERAL W/ JEY Routine 11/07/2023 2:24 PM COMPLIANCE QUALITY PERFORMANCE ANALYST Visit for screening mammogram TSH WITH FREE T4 REFLEX Routine 05/29/2023 7:37 AM CDT Thyroid nodule LIPID REFLEX TO DIRECT LDL PANEL Routine 05/29/2023 7:37 AM CDT Screening for lipid disorders ABSTRACT PAP ([facility] EXTERNAL RESULT) Routine 09/04/2020 4:30 PM CDT ABSTRACT HPV ([facility] EXTERNAL RESULT) Routine 09/04/2020 4:30 PM CDT COLONOSCOPY Routine 03/28/2014 7:00 AM CDT HEPATITIS C ANTIBODY Routine 08/19/2010 11:00 AM CDT HIV 1 AND 2 ANTIBODY ([facility]) Routine 11/08/2006 9:20 AM COMPLIANCE QUALITY PERFORMANCE ANALYST from Last 3 Months or Most Recently Relevant to Health Maintenance Results * (ABNORMAL) Comprehensive metabolic panel (03/20/2024 11:31 AM CDT) Sodium 136 135 - 145 mmol/L 03/21/2024 5:09 AM CDT [facility] Comment:Reference intervals for this test were updated on 08/08/2023 to more accurately reflect our healthy population. There may be differences in the flagging of prior results with similar values performed with this method. Interpretation of those prior results can be made in the context of the updated reference intervals. Potassium 4.1 3.4 - 5.3 mmol/L 03/21/2024 5:09 AM CDT [facility] Carbon Dioxide (CO2) 26 22 - 29 mmol/L 03/21/2024 5:09 AM CDT [facility] Anion Gap 11 7 - 15 mmol/L 03/21/2024 5:09 AM CDT [facility] Urea Nitrogen 17.8 8.0 - 23.0 mg/dL 03/21/2024 5:09 AM CDT [facility] Creatinine 0.74 0.51 - 0.95 mg/dL 03/21/2024 5:09 AM CDT [facility] GFR Estimate >90 >60 mL/min/1. 73m2 03/21/2024 5:09 AM CDT [facility] Calcium 9.6 8.8 - 10.2 mg/dL 03/21/2024 5:09 AM CDT [facility] Chloride 99 98 - 107 mmol/L 03/21/2024 5:09 AM CDT [facility] Glucose 111(H) 70 - 99 mg/dL 03/21/2024 5:09 AM CDT [facility] Alkaline Phosphatase 69 40 - 150 U/L 03/21/2024 5:09 AM CDT [facility] Comment:Reference intervals for this test were updated on 09/26/2023 to more accurately reflect our healthy population. There may be differences in the flagging of prior results with similar values performed with this method. Interpretation of those prior results can be made in the context of the updated reference intervals. AST 26 0 - 45 U/L 03/21/2024 5:09 AM CDT [facility] Comment:Reference intervals for this test were updated on 04/24/2023 to more accurately reflect our healthy population. There may be differences in the flagging of prior results with similar values performed with this method. Interpretation of those prior results can be made in the context of the updated reference intervals. ALT 27 0 - 50 U/L 03/21/2024 5:09 AM CDT [facility] Comment:Reference intervals for this test were updated on 04/24/2023 to more accurately reflect our healthy population. There may be differences in the flagging of prior results with similar values performed with this method. Interpretation of those prior results can be made in the context of the updated reference intervals. Protein Total 7.2 6.4 - 8.3 g/dL 03/21/2024 5:09 AM CDT [facility] Albumin 4.7 3.5 - 5.2 g/dL 03/21/2024 5:09 AM CDT [facility] Bilirubin Total 0.7 <=1.2 mg/dL 03/21/2024 5:09 AM CDT [facility] Blood BLOOD SPECIMEN / Unknown Venipuncture / Unknown 03/20/2024 11:31 AM CDT 03/20/2024 11:31 AM CDT Keri Malave PA-C LAB - BLOOD JOSUE MARTINEZ Final Result [facility] [address] [facility], [address] [id number] * [place] Screen with Implants Bilateral w/Jey (11/07/2023 2:24 PM COMPLIANCE QUALITY PERFORMANCE ANALYST) Anatomical Region Laterality Modality Breast Bilateral Mammography Impressions 11/09/2023 10:29 AM COMPLIANCE QUALITY PERFORMANCE ANALYST IMPRESSION: ACR BI-RADS Category 2: Benign RECOMMENDED FOLLOW-UP: Annual routine screening mammogram The results and recommendations of this examination will be communicated to the patient. Dany Dominguez MD Narrative 11/09/2023 10:29 AM COMPLIANCE QUALITY PERFORMANCE ANALYST BILATERAL FULL FIELD DIGITAL SCREENING MAMMOGRAM WITH TOMOSYNTHESIS Performed on: 11/07/23 Compared to: 07/25/2022 and 10/23/2015 Technique: This study was evaluated with the assistance of Computer-Aided Detection. Breast Tomosynthesis was used in interpretation. Findings: The breasts have scattered areas of fibroglandular density. There are breast augmentation changes in both breasts. There is no radiographic evidence of malignancy. us Tresa Lopez BLENDING SUPERVISOR IMG MAMMOGRAPHY ORDERABLES Fi nal Result * TSH with free T4 reflex (05/29/2023 7:37 AM CDT) TSH 2.45 0.30 - 4.20 uIU/mL 05/29/2023 2:15 PM CDT [facility] Blood BLOOD SPECIMEN / Unknown Venipuncture / Unknown 05/29/2023 7:37 AM CDT 05/29/2023 7:37 AM CDT us Tresa Marroquin BLENDING SUPERVISOR LAB - BLOOD ORDERABLES Final Result [facility] [address] [facility], [address] [address], [facility] [phone] * (ABNORMAL) Lipid panel reflex to direct LDL Non-fasting (05/29/2023 7:37 AM CDT) Cholesterol 228(H) <200 mg/dL 05/29/2023 2:15 PM CDT [facility] Triglycerides 133 <150 mg/dL 05/29/2023 2:15 PM CDT [facility] Direct Measure HDL 55 >=50 mg/dL 05/29/2023 2:15 PM CDT [facility] LDL Cholesterol Calculated 146(H) <=100 mg/dL 05/29/2023 2:15 PM CDT [facility] Non HDL Cholesterol 173(H) <130 mg/dL 05/29/2023 2:15 PM CDT [facility] Blood BLOOD SPECIMEN / Unknown Venipuncture / Unknown 05/29/2023 7:37 AM CDT 05/29/2023 7:37 AM CDT Narrative [facility] - 05/29/2023 2:15 PM CDT Cholesterol Desirable: <200 mg/dL Triglycerides Normal: Less than 150 mg/dL Borderline High: 150-199 mg/dL High: 200-499 mg/dL Very High: Greater than or equal to 500 mg/dL Direct Measure HDL Female: Greater than or equal to 50 mg/dL Male: Greater than or equal to 40 mg/dL LDL Cholesterol Desirable: <100mg/dL Above Desirable: 100-129 mg/dL Borderline High: 130-159 mg/dL High: 160-189 mg/dL Very High: >= 190 mg/dL Non HDL Cholesterol Desirable: 130 mg/dL Above Desirable: 130-159 mg/dL Borderline High: 160-189 mg/dL High: 190-219 mg/dL Very High: Greater than or equal to 220 mg/dL Tresa Marroquin BLENDING SUPERVISOR LAB - BLOOD ORDERABLES Final Result [facility] [address] [facility], [address] [place] [address], [facility] [phone] * Abstract HPV (HIM External Result) (09/04/2020 4:30 PM CDT) HPV Abstract See Scanned Document [facility] 09/04/2020 4:30 PM CDT Narrative [facility] - 09/04/2020 4:30 PM CDT Kaity Mcgowan, DEVANTE P Abstract Quality Initiatives Please abstract the following data from this visit with this patient into the appropriate field in Epic: Tests that can be patient reported without a hard copy: Other Tests found in the patient's chart through Chart Review/Care Everywhere: Pap smear done by this group [facility] on this date: 09/04/2020 and HPV done by this group [facility] on this date: 09/04/2020 SEE CARE EVERYWHERE [facility] us Provider Outside LAB - HIM EXTERNAL RESULT Final Result [facility] [address] [place] [address], [facility] * Abstract PAP (HIM External Result) (09/04/2020 4:30 PM CDT) PAP-ABSTRACT See Scanned Document [facility] 09/04/2020 4:30 PM CDT Narrative [facility] - 09/04/2020 4:30 PM CDT Kaity Mcgowan CMA P Abstract Quality Initiatives Please abstract the following data from this visit with this patient into the appropriate field in Epic: Tests that can be patient reported without a hard copy: Other Tests found in the patient's chart through Chart Review/Care Everywhere: Pap smear done by this group [facility] on this date: 09/04/2020 and HPV done by this group [facility] on this date: 09/04/2020 SEE CARE EVERYWHERE [facility] us Provider Outside LAB - HIM EXTERNAL RESULT Final Result [facility] [address] [place] [address], [facility] * COLONOSCOPY (03/28/2014 7:00 AM CDT) COLONOSCOPY [facility] Patient Name: Pito Hurley Procedure Date: 03/28/2014 7:00:43 AM Date of : 1960 Admit Type: Outpatient Age: 53 Gender: Female Attending MD: Garret Polanco MD Procedure: Colonoscopy Indications: Screening for colorectal malignant neoplasm Providers: Garret Tyler MD Referring MD: Keri Malave MD Medicines: Midazolam 2 mg IV, Fentanyl 100 micrograms IV Complications: No immediate complications Procedure: Pre-Anesthesia Assessment: - Prior to the procedure, a History and Physical was performed, and patient medications and allergies were reviewed. The patient is competent. The risks and benefits of the procedure and the sedation options and risks were discussed with the patient. All questions were answered and informed consent was obtained. Patient identification and proposed procedure were verified by the physician in the procedure room. Mental Status Examination: alert and oriented. Airway Examination: normal oropharyngeal airway and neck mobility. Respiratory Examination: clear to auscultation. CV Examination: normal. Prophylactic Antibiotics: The patient does not require prophylactic antibiotics. Prior Anticoagulants: The patient has taken no previous anticoagulant or antiplatelet agents. ASA Grade Assessment: I - A normal, healthy patient. After reviewing the risks and benefits, the patient was deemed in satisfactory condition to undergo the procedure. The anesthesia plan was to use moderate sedation / analgesia (conscious sedation). Immediately prior to administration of medications, the patient was re-assessed for adequacy to receive sedatives. The heart rate, respiratory rate, oxygen saturations, blood pressure, adequacy of pulmonary ventilation, and response to care were monitored throughout the procedure. The physical status of the patient was re-assessed after the procedure. After obtaining informed consent, the colonoscope was passed under direct vision. Throughout the procedure, the patient's blood pressure, pulse, and oxygen saturations were monitored continuously. The [id number] was introduced through the anus and advanced to the cecum, identified by appendiceal orifice & ileocecal valve. The colonoscopy was performed without difficulty. The patient tolerated the procedure well. The quality of the bowel preparation was good. Findings: The perianal and digital rectal examinations were normal. The entire examined colon appeared normal on direct and retroflexion views. Impression: - The entire examined colon is normal on direct and retroflexion views. Recommendation: - Repeat colonoscopy in 10 years for screening purposes. Electronically signed by Garret Tyler MD __ Garret Tyler MD Signed Date: 03/28/2014 7:51:38 AM Number of Addenda: 0 I was physically present for the entire viewing portion of the exam. Note Initiated On: 03/28/2014 7:00:43 AM Scope Withdrawal Time: 0 hours 6 minutes 26 seconds Scope Withdrawal Time: 0 hours 6 minutes 26 seconds Total Procedure Duration: 0 hours 12 minutes 41 seconds Total Procedure Duration: 0 hours 12 minutes 41 seconds RADIOLOGY RESULTS 03/28/2014 7:00 AM CDT Keri Malave PA-C PROCEDURES Final Result RADIOLOGY RESULTS * Hepatitis C antibody (08/19/2010 11:00 AM CDT) Hepatitis C Antibody Negative NEG [facility] 08/19/2010 11:0 0 AM CDT 08/19/2010 10:47 AM CDT Garret rPoctor MD LAB - BLOOD ORDERABLES Final Re sult [facility] * HIV 1 and 2 Antibody (11/08/2006 9:20 AM COMPLIANCE QUALITY PERFORMANCE ANALYST) HIV 1&2 Antibody Negative NEG MISYS 11/08/2006 9:20 AM COMPLIANCE QUALITY PERFORMANCE ANALYST 11/08/2006 9:24 AM COMPLIANCE QUALITY PERFORMANCE ANALYST Raquel Wall MD LAB - BLOOD ORDERABLES Fin al Result M[facility] from Last 3 Months or Most Recently Relevant to Health Maintenance Insurance [facility] Care Teams Events Assistant Relationship Specialty Start Date End Date Keri Malave PA-C [address] [place] [address] PCP - General Family Medicine 03/20/24 Ivonne Shea DO [address] [place] [address] Physician Cardiovascular Disease 05/26/23 Sherita Stephens PA-C [address] [id number] Physician Occupational Therapy Teacher Cardiology 08/10/23 Sherita Stephens PA-C [address] [address] Assigned Heart and Vascular Provider 12/07/23 Keri Malave PA-C [address] [place] [address] Assigned PCP 04/04/24
--- NOTE | 2025-03-12 12:22 | ED_ITS ---
HPI - Headache General Date Seen: 03/12/25 Chief Complaint: Headache/Migraine Stated Complaint: Really bad heachache Time Seen by Provider: 03/12/25 12:21 History of Present Illness HPI Narrative: This is a 64-year-old female was referred to the ER today from the [facility] with concern for severe sudden-onset headache that began 3 days ago on Monday and also is associated with a fever with a temperature of 100.4? today at the urgent care. Initial report obtained by phone call from the urgent care provider. Per UC note from today, Pt was seen in UC 03/08 and was diagnosed with bacterial vaginosis and was prescribed Metronidazole and says that it has not gotten better. Pt states she was seen by Indiana Chin 03/10/25 - had pelvic exam. Pt states that her vaginal symptoms have gotten better but have not gone away. Pt states that she has a very bad headache that she first noticed 03/10 evening takes ibuprofen every 6 hours for pain feels like my head is going to blow off She read the label on the medication and scanned the barcode and read the side effects and it advised her to call her doctor based off of her symptoms. Has a hard time brushing her teeth due to pain. When pt moves it is very painful. Sensitivity to light. Pt states that her neck and face have gotten red and has had a low grade temp. History from the patient includes history of herpes zoster, history of thrombocytopenia, history of tick bite, history of colitis, and had recent diagnosis of bacterial vaginosis. Per medical record she was in the urgent care 4 days ago with urinary frequency, cloudy urine, yellow urine, and diarrhea. Per records she did not have any flank pain. Also having some thick yellow vaginal discharge. Per the urgent care record, her urinalysis had bacteria but otherwise normal UA. She was treated with Flagyl for bacterial vaginosis. She had a return visit to the urgent care on 03/10. It looks like the note has not yet been finalized by the urgent care provider but from what is available she had return with concern for pelvic problems. She had recently begun sexual activity with her same previous partner had no concern for STI but was concerned because she often gets bladder infections after sexual activity. During that visit urinalysis was abnormal with 10-25 WBC/HPF, 2-5 RBCs, 2+ leukocyte esterase. It looks like she had a pelvic exam and tests were negative for chlamydia, negative for gonorrhea, negative for Trichomonas, negative for yeast but she did have clue cells. History from the patient is that she began to have some pelvic discomfort and vaginal discharge and some urinary urgency and frequency the last week and came to the urgent care on Monday for evaluation. She was put on the Flagyl and started that. She is says that since starting the Flagyl vaginal discharge improved other symptoms have not, in fact other symptoms have gotten worse. Started developed body aches and myalgias throughout her body but not localized to her flanks necessarily on Monday and with that started having low-grade fever. She has not really had a cough for any trouble breathing. She has had some mild nasal congestion which she attributes to Spring seasonal allergies. She uses Claritin for that. She went back to the urgent care on Monday and had a repeat evaluation. She is still taking the Flagyl. She has been feeling worse with increasing body aches. On Monday night she was watching TV with her . When she stood up she had abrupt onset of a severe headache that felt like the vertex of her skull was going to ?blow off. ?. Since then she has had a fairly bad headache. It gets worse when she lays down she feels a lot of pressure in the top of her head her nerve forehead. She does not have other sinus pressure or nasal congestion. She has been very light sensitive and nauseous but not having double vision. No focal numbness or weakness in her arms or legs. She has history of migraines but this headache is different in its onset, severity and location from her previous migraines. No recent head trauma. She has been feeling worse today and also developing some stiffness in the back of her neck. She was referred to the ER by urgent care. 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 It is possible she could have been exposed to ticks. Related Data Home Medications ?Medication ?Instructions ?Recorded ?Confirmed fluticasone propionate 50 2 intranasal DAILY 06/30/22 03/12/25 mcg/actuation nasal spray,suspension levothyroxine 50 mcg tablet 50 mcg PO DAILY 07/18/24 03/12/25 Previous Rx's ?Medication ?Instructions ?Recorded meclizine 50 mg tablet 25 - 50 mg (0.5 - 1 x 50 mg) PO 06/27/24 BID PRN dizziness #20 tabs scopolamine base 1 mg over 3 days 1 patch transdermal Q3D PRN 07/18/24 transdermal patch dizziness #10 ea lisinopril 5 mg tablet 5 mg PO DAILY #90 tabs 01/01/25 metronidazole 500 mg tablet 500 mg PO BID #14 tabs 03/08/25 estradiol 0.01% (0.1 mg/gram) 1 g vaginal 2XW #42.5 grams 03/10/25 vaginal cream (Estrace) doxycycline monohydrate 100 mg 100 mg PO BID #20 caps 03/12/25 capsule metronidazole 0.75 % (37.5 mg/5 1 appful vaginal QDAY 5 days #70 03/12/25 gram) vaginal gel grams Allergies Allergy/AdvReac Type Severity Reaction Status Date / Time fish oil Allergy Hives Uncoded 03/12/25 10:47 nuts Allergy Uncoded 03/12/25 10:47 shellfish Allergy Uncoded 03/12/25 10:47 [facility] Medical History (Updated 03/12/25 @ 18:47 by Yony Abdi MD) Headache ?R51.9 - Headache, unspecified (ICD-10) Bacterial vaginosis ?N76.0 - Acute vaginitis (ICD-10) ?B96.89 - Other specified bacterial agents as the cause of diseases classified elsewhere (ICD-10) Diarrhea ?R19.7 - Diarrhea, unspecified (ICD-10) Vertigo ?R42 - Dizziness and giddiness (ICD-10) Right foot pain ?M79.671 - Pain in right foot (ICD-10) Tick bite ?W57.XXXA - Bitten or stung by nonvenomous insect and other nonvenomous arthropods, initial encounter (ICD-10) Fatigue ?R53.83 - Other fatigue (ICD-10) Dysuria ?R30.0 - Dysuria (ICD-10) History of colitis (2020) ?Z87.19 - Personal history of other diseases of the digestive system (ICD-10) Status post administration of all doses of severe acute respiratory syndrome coronavirus 2 (SARS-CoV-2) vaccine series ?Z92.29 - Personal history of other drug therapy (ICD-10) History of thrombocytopenia ?Z86.2 - Personal history of diseases of the blood and blood-forming organs and certain disorders involving the immune mechanism (ICD-10) Herpes zoster ?B02.9 - Zoster without complications (ICD-10) Fusion of lumbar spine ?M43.26 - Fusion of spine, lumbar region (ICD-10) Surgical History (Updated 07/30/24 @ 08:19 by Joanie Stephens) S/P appendectomy ?Z90.49 - Acquired absence of other specified parts of digestive tract (ICD- 10) History of lobectomy of thyroid ?Z90.09 - Acquired absence of other part of head and neck (ICD-10) Status post LASIK surgery of both eyes ?Z98.890 - Other specified postprocedural states (ICD-10) Status post delivery ?Z98.891 - History of uterine scar from previous surgery (ICD-10) Status post abdominoplasty ?Z98.890 - Other specified postprocedural states (ICD-10) History of spinal fusion ?Z98.1 - Arthrodesis status (ICD-10) History of nasal septoplasty ?Z98.890 - Other specified postprocedural states (ICD-10) History of loop electrosurgical excision procedure (LEEP) of cervix ?Z98.890 - Other specified postprocedural states (ICD-10) Family History (Updated 07/30/24 @ 08:06 by Joanie Stephens) Brother Esophageal cancer Coronary artery disease Myocardial infarction Father Coronary artery disease Myocardial infarction Hx of CABG Prostate cancer Sister Coronary artery disease High cholesterol Mother Coronary artery disease Hx of CABG High cholesterol Sister High cholesterol Maternal Grandmother Myocardial infarction Maternal Grandfather Parkinsonism Brother Spondylolisthesis Social History (Updated 06/30/22 @ 13:47 by Indiana Chin PA-C) Narrative: Non-tobacco user - 2 adult children 8-12 alcoholic drinks per week Smoking Status: Never smoker Exam Narrative: Exam Narrative: Constitutional: Appears well-developed and well-nourished. Alert. Conversant. Non toxic. She is uncomfortable and has the lights out in her room due to photophobia. HENT: Head: Atraumatic. No depressed skull fracture, Raccoon Eyes, Hopkins's sign, or hemotympanum. Face normal. TMs normal Nose: Nose normal. No purulent rhinorrhea. No sinus tenderness. Mouth/Throat: Oral mucosa is clear and moist. no trismus. Pharynx normal. Tonsils symmetric. No tonsillar enlargement, erythema, or exudate. Eyes: Conjunctivae normal. EOM normal. Pupils equal, round, and reactive to light. No scleral icterus. Neck: Normal range of motion But she complains of pain in the back of her neck when she is rotating laterally. She is able to fully extend her neck and fully flex it with her chin down to her chest. Neck supple. No tracheal deviation present. Cardiovascular: Normal rate, regular rhythm. No gallop. No friction rub. No murmur heard. Symmetric radial artery pulses Pulmonary/Chest: Effort normal. No stridor. No respiratory distress. No wheezes. No rales. No rhonchi . No tenderness. No CVA tenderness. Abdominal: Soft. Bowel sounds normal. No distension. No mass. No tenderness. No rebound. No guarding. Musculoskeletal: RUE: Normal range of motion. No tenderness. No deformity LUE: Normal range of motion. No tenderness. No deformity RLE: Normal range of motion. No edema. No tenderness. No deformity LLE: Normal range of motion. No edema. No tenderness. No deformity Neurological: Mental status normal. Attention normal. Alert and oriented x3. GCS 15. Memory normal. Speech fluent. Cognition normal. Cranial Nerves intact II-XII except I did not formally test gag or visual acuity. EOMI. Palate elevates symmetrically and tongue protrudes in the midline. Strength: 5/5 trapezius on the right and left 5/5 deltoid on the right and left 5/5 biceps on the right and left 5/5 triceps on the right and left 5/5 president sales and marketing on the right and left 5/5 thumb opposition on the right and le ft 5/5 finger abduction on the right and le ft 5/5 hip flexors (L3) on the right and le ft 5/5 quadriceps (L4) on the right and lef t 5/5 tibialis anterior on the right and l eft 5/5 EHL (L5) on the right and left 5/5 gastrocnemius (S1) on the right and left 5/5 hamstring on the right and left Sensation intact to light touch in both upper extremities (C4-T1) Sensation intact to light touch in Both lower extremities (L4-S1). Coordination normal. Skin: Skin is warm and dry. No rash noted. No pallor. Normal capillary refill. Psychiatric: Normal mood. Normal affect. Const: Vital Signs, click to edit/add: Vital Signs - 24 hr 03/12/25 12:25 03/12/25 14:47 Temperature 97.1 F L Pulse Rate [Pulse Oximeter] 78 84 Respiratory Rate 16 16 Blood Pressure [Ri ght Upper Arm] 130/81 113/75 Pulse Oximetry 98 98 Oxygen Delivery Me thod Room Air Room Air Course Course ED Course: Recheck-headache improving after medications. Remains alert and oriented. Recheck-CT imaging is reassuring. No evidence for any intracranial bleed. No evidence for aneurysmal disease or dissection. Laboratory workup showing mildly elevated CRP, normal white count. Headache improving but still some neck soreness and stiffness. Recheck-had a detailed discussion with the patient and then with the patient and her by phone about differential. After discussion of risks and benefits she elected to go ahead with lumbar puncture. This was performed in the seated position and initial CSF analysis is reassuring with only 1 white cell and 0 red cells per high-power field. Vital Signs Vital signs: Initial Vital Signs Temperature 97.1 F L 03/12/25 12:25 Temperature Source Temporal Artery Scan 03/12/25 12:25 Pulse Rate 78 03/12/25 12:25 Respiratory Rate 16 03/12/25 12:25 Blood Pressure 130/81 03/12/25 12:25 Blood Pressure Mean 97 03/12/25 12:25 Blood Pressure Position High-Fowlers 03/12/25 12:25 Pulse Oximetry 98 03/12/25 12:25 Oxygen Delivery Method Room Air 03/12/25 12:25 Vital Signs Temperature 97.1 F L 03/12/25 12:25 Pulse Rate 78 03/12/25 12:25 Respiratory Rate 16 03/12/25 12:25 Blood Pressure 130/81 03/12/25 12:25 Pulse Oximetry 98 03/12/25 12:25 Oxygen Delivery Method Room Air 03/12/25 12:25 Temperature 97.1 F L 03/12/25 12:25 Pulse Rate 84 03/12/25 14:47 Respiratory Rate 16 03/12/25 14:47 Blood Pressure 113/75 03/12/25 14:47 Pulse Oximetry 98 03/12/25 14:47 Oxygen Delivery Method Room Air 03/12/25 14:47 Medications Administered Medications: Discontinued Medications Generic Name Dose Route Start Last Admin Trade Name Duong PRN Reason Stop Dose Admin Acetaminophen 1,000 mg 03/12/25 15:10 03/12/25 15:17 Acetaminophen 500 Mg Tablet PO 03/12/25 15:11 1,000 mg ONCE ONE Administration Diphenhydramine HCl 12.5 mg 03/12/25 12:48 03/12/25 14:13 Diphenhydramine 50 Mg/Ml Inj IVP 03/12/25 12:49 12.5 mg ONCE ONE Administration Doxycycline Hyclate 100 mg 03/12/25 18:48 03/12/25 19:01 Doxycycline Hyclate 100 Mg PO 03/12/25 18:49 100 mg ONCE ONE Administration Sodium Chloride 1,000 mls @ 1,000 mls/hr 03/12/25 13:00 03/12/25 15:13 0.9 % Sodium Chloride 1000 Ml IV 03/12/25 13:59 Infused .Q1H ALAN Infusion Ketorolac Tromethamine 15 mg 03/12/25 12:48 03/12/25 14:13 Ketorolac 15 Mg/Ml Inj IVP 03/12/25 12:49 15 mg ONCE ONE Administration Metoclopramide HCl 10 mg 03/12/25 12:48 03/12/25 14:14 Metoclopramide Hcl 5 Mg/Ml Inj IVP 03/12/25 12:49 10 mg ONCE ONE Administration MDM - Headache MDM Narrative Medical decision making narrative: 64-year-old female returns for drug the urgent care today for evaluation of headache, neck stiffness, fever. And she has a complex presentation She had been experiencing some urinary symptoms, pelvic discomfort, and vaginal discharge and has 2 visits to the urgent care or the past few days for those symptoms. Initial urinalysis on the was normal but urinalysis on the with abnormal. Unclear if this was a contaminated specimen or not. She was not put on any antibiotics for UTI. Repeat urinalysis today with a clean-catch sample is very normal. No signs of bacteria, pyuria, or chemicals to suggest UTI. At this point no clear evidence for urinary infection such as cystitis, pyelonephritis, or urosepsis. She has already had pelvic exam with negative STD screen and abnormal findings of BV and is on Flagyl for that. Abdominal evaluation is nontender. Low suspicion for PID today. Despite that treatment has developed myalgias and fevers for the past 3 days and a bad headache that was sudden onset 2 days ago, also associated with some neck pain with movement but not really stiffness and meningismus. she had a temperature 100.4? in the urgent care this morning. She was sent from the urgent care today for evaluation specifically to evaluate her headache. The with sudden-onset headache and severe atypical headache consider possible vascular phenomena such as subarachnoid hemorrhage. Nonc ontrast head CT is normal but since headache began 2 days ago sensitivity of the non con CT is less than 100%. CT angio of her head and neck shows no aneurysmal disease or other acute abnormality such as vertebral or carotid artery dissection. She did have fevers and chills at home and a measured temp of 100.4? at the urgent care today. She is not febrile here in the ER. She is hemodynamically stable. Nonetheless, fever raises concern for infectious etiology causing her headache. Given chronology here with 2 days of headache and 3 days of fever, acute fulminant bacterial meningitis seems less likely so we did not immediately go to IV steroids and antibiotics. However consider viral meningitis or possible tick-borne illness such as Lyme disease or ehrlichiosis or anaplasmosis. [place] great potential exposure to ticks but she has no known specific exposure to donahue or long grass and has not noticed any ticks on herself this spring. She does have a tick exposure several years ago. She has not had any recent suspicious rashes to suggest erythema migrans. Laboratory workup shows normal total white blood cell count at 6.1. Differential is 76% neutrophils, 10% lymphocytes, 9% monocytes, 3% eosinophils. CRP is mildly abnormal at 4.3. LFTs are mildly abnormal with AST of 80 and ALT of 75. Most recent a previous measurement of her LFTs was normal in 2021. She does have a charted history of hepatic steatosis, but unclear that explains the change lab values. A concern here is for possible tick-borne illness. In particular potential risk for Lyme meningitis. Discussed with the patient that at this point with her come cytopenia, mildly abnormal LFTs, fever, headache and body symptoms I think Mariano lawler should empirically treat her with doxycycline and tell her tick borne panel comes back. However if there is Lyme meningitis, treatment would be IV Rocephin, not oral doxycycline at home. Overall I have a low suspicion for a full minute bacterial meningitis. Discussed the risks/benefits of lumbar puncture including the risk of 10% chance of post spinal headache, low but non 0 risk bleeding, infection. Also discussed the potential risk of worsening illness if she has meningitis that is not properly diagnosed and treated. She elected to go ahead with LP. This was obtained and fortunately CSF white count is reassuring at 1 white cell per high-power field. A CSF glucose is 52 and protein is 57. Electrolytes, blood sugar, kidney function are normal. She does not really have cough or sore throat. We did consider possible COVID or influenza causing her headache. PCR is negative for those viral illnesses. First dose of oral doxycycline administered here in the ER. Prescription for doxycycline 100 mg p.o. b.i.d. for 10 days to her pharmacy. Would recommend that if the Lyme panel and tick-borne illness panel is negative she can stop the doxycycline at that point. Addendum-after the patient was discharged lab called and said that they actually did not have enough blood to send off the tick-borne panel. Called the patient at home and she has an appointment tomorrow for a pelvic ultrasound shows. I lab tomorrow to get additional lab draw for her workup. Lab Data Labs: Lab Results 03/12/25 03/12/25 03/12/25 Range/Units 12:54 13:05 13:10 WBC 6.17 (4.50-11.00) K/uL RBC 3.95 L (4.00-5.20) m/uL Hgb 13.0 (12.0-16.0) gm/dL Hct 39.7 (33.0-51.0) % MCV 101 H (80-100) fL MCH 33 (26-34) pg MCHC 33 (32-36) gm/dL RDW Coeff of Sushma 12.7 (11.5-15.5) % Plt Count 125 L (140-440) K/uL Neut % (Auto) 76.2 H (42.0-72.0) % Lymph % (Auto) 10.9 L (20-44) % [place] % (Auto) 9.1 (0.0-11.0) % Eos % (Auto) 3.4 (0.0-7.0) % Baso % (Auto) 0.2 (0.0-3.0) % Neut # (Auto) 4.70 (1.7-7.0) K/uL Lymph # (Auto) 0.70 L (0.90-2.90) K/uL Red[place] # (Auto) 0.60 (0.00-0.90) K/UL Eos # (Auto) 0.21 (0.00-0.50) K/uL Baso # (Auto) 0.01 (0.00-0.30) K/uL Abs Immat Gran (auto) 0.01 (0.00-0.30) K/uL Imm/Tot Granulo (auto) 0.2 % Sodium 136 (135-149) mmol/L Potassium 4.0 (3.6-5.1) mmol/L Chloride 104 (96-114) mmol/L Carbon Dioxide 25 (20-32) mmol/L Anion Gap 7 (7-15) mEq/L BUN 11 (7-30) mg/dL Creatinine 0.7 (0.5-1.5) mg/dL Estimated Creat Clear 54.61 Estimated GFR 98 ml/min Glucose 103 (60-115) mg/dL Lactate 0.8 (0.5-1.9) mmol/L Calcium 8.9 (8.4-10.6) mg/dL Total Bilirubin 0.7 (0.1-1.5) mg/dL AST 80 H (12-35) U/L ALT 75 H (4-35) U/L Alkaline Phosphatase 69 (40-150) U/L C-Reactive Protein 4.3 H (0.5-1.0) mg/dL Total Protein 6.7 (6.0-8.3) g/dL Albumin 4.1 (3.3-5.0) g/dL Urine Color (Yellow) Urine Appearance (Clear) Urine pH (5.0-8.5) Ur Specific [place] (1.000-1.030) Urine Protein (Negative) Urine Glucose (UA) (Negative) Urine Ketones (Negative) Urine Blood (Negative) Urine Nitrite (Negative) Urine Bilirubin (Negative) Urine Urobilinogen (0.2-1.0) Ur Leukocyte Esterase (Negative) Urine RBC (0-2) Urine WBC (0-5) Ur Squamous Epith Cells (None-Few) Urine Bacteria (None) CSF Volume (0-6) mL CSF Appearance (Clear) CSF Color (Colorless) CSF WBC Cells/uL CSF RBC Cells/uL CSF Mononuclear Cells % CSF Polynuclear WBCs % CSF Glucose (40-70) mg/dL CSF Total Protein (15-45) mg/dL SARS-CoV-2 (PCR) Negative SARS-CoV-2 (Negative) Influenza Type A (PCR) Negative PCR FLU A (Negative) Influenza Type B (PCR) Negative PCR FLU B (Negative) POC Creatinine 0.8 (0.6-1.3) mg/dl 03/12/25 03/12/25 Range/Units 13:46 16:55 WBC (4.50-11.00) K/uL RBC (4.00-5.20) m/uL Hgb (12.0-16.0) gm/dL Hct (33.0-51.0) % MCV (80-100) fL MCH (26-34) pg MCHC (32-36) gm/dL RDW Coeff of Sushma (11.5-15.5) % Plt Count (140-440) K/uL Neut % (Auto) (42.0-72.0) % Lymph % (Auto) (20-44) % Red[place] % (Auto) (0.0-11.0) % Eos % (Auto) (0.0-7.0) % Baso % (Auto) (0.0-3.0) % Neut # (Auto) (1.7-7.0) K/uL Lymph # (Auto) (0.90-2.90) K/uL [place] # (Auto) (0.00-0.90) K/UL Eos # (Auto) (0.00-0.50) K/uL Baso # (Auto) (0.00-0.30) K/uL Abs Immat Gran (auto) (0.00-0.30) K/uL Imm/Tot Granulo (auto) % Sodium (135-149) mmol/L Potassium (3.6-5.1) mmol/L Chloride (96-114) mmol/L Carbon Dioxide (20-32) mmol/L Anion Gap (7-15) mEq/L BUN (7-30) mg/dL Creatinine (0.5-1.5) mg/dL Estimated Creat Clear Estimated GFR ml/min Glucose (60-115) mg/dL Lactate (0.5-1.9) mmol/L Calcium (8.4-10.6) mg/dL Total Bilirubin (0.1-1.5) mg/dL AST (12-35) U/L ALT (4-35) U/L Alkaline Phosphatase (40-150) U/L C-Reactive Protein (0.5-1.0) mg/dL Total Protein (6.0-8.3) g/dL Albumin (3.3-5.0) g/dL Urine Color Yellow (Yellow) Urine Appearance Clear (Clear) Urine pH 6.0 (5.0-8.5) Ur Specific [place] <= 1.005 (1.000-1.030) Urine Protein Negative (Negative) Urine Glucose (UA) Negative (Negative) Urine Ketones Negative (Negative) Urine Blood Negative (Negative) Urine Nitrite Negative (Negative) Urine Bilirubin Negative (Negative) Urine Urobilinogen 0.2 (0.2-1.0) Ur Leukocyte Esterase Negative (Negative) Urine RBC 0-2 (0-2) Urine WBC 0-2 (0-5) Ur Squamous Epith Cells None (None-Few) Urine Bacteria None (None) CSF Volume 6.0 (0-6) mL CSF Appearance Clear (Clear) CSF Color Colorless (Colorless) CSF WBC 1 Cells/uL CSF RBC 0 Cells/uL CSF Mononuclear Cells 100 % CSF Polynuclear WBCs 0 % CSF Glucose 52 (40-70) mg/dL CSF Total Protein 57 H (15-45) mg/dL SARS-CoV-2 (PCR) (Negative) Influenza Type A (PCR) (Negative) Influenza Type B (PCR) (Negative) POC Creatinine (0.6-1.3) mg/dl Imaging Data CT scan - head: Attestation: I have reviewed the pertinent imaging results. Radiologist's impression: IMPRESSION: Unremarkable noncontrast head CT. CTA Head and NEck: Attestation: I have reviewed the pertinent imaging results. Radiologist's impression: NECK CTA: 1. No hemodynamically significant stenosis of the extracranial vertebral or carotid arteries. 2. Noncalcified 2 millimeter pulmonary nodule right upper lobe (series 3, image 233; series 5, image 120). 3. Incidental 3 millimeter hypodense nodule left lobe of the thyroid (series 3, image 169). HEAD CTA: 1. Diminutive caliber of the bilateral vertebral arteries without hemodynamically significant vertebral or basilar stenosis. Bilateral posterior cerebral arteries predominantly supplied (minimal right P1 segment) through p osterior communicating artery branches. No hemodynamically significant stenosis posterior cerebral arteries. 2. No hemodynamically significant anterior circulation stenosis. 3. No definite intracranial aneurysm seen. Dural venous sinuses unremarkable for this phase of enhancement. Discharge Plan Discharge Clinical Impression: Headache, Acute neck pain, Fever Patient Disposition: Home, Self-Care Condition: Stable Instructions: Fever in Adults (ED), Acute Headache (DC) Additional Instructions: As we discussed, at this time we do not know the exact cause of her headache or fever. Fortunately the spinal fluid analysis looks normal and there is no sign of meningitis. I am suspicious that you may have a tick-borne infection. I want her to start on the new antibiotic, called doxycycline, today. We are waiting on some additional blood test to look for tick-borne illness. These will come back in the next couple of days. If those labs come back negative, you can stop the antibiotic at that time. In the meantime, treat your headache as needed. Rest and stay hydrated. Return to the ER right away if you have any concerns especially worsening headache, higher fever, weakness, confusion, vomiting, or any concerns. For now it is okay to discontinue the antibiotic that you have been taking for the BV, called Flagyl (metronidazole). Please follow-up with your regular doctor within 2-3 days for recheck. Prescriptions: New doxycycline monohydrate 100 mg capsule 100 mg PO BID Qty: 20 0RF No Action fluticasone propionate 50 mcg/actuation spray,suspension 2 intranasal DAILY levothyroxine 50 mcg tablet 50 mcg PO DAILY scopolamine base 1 mg over 3 days patch 3 day 1 patch transdermal Q3D PRN (Reason: dizziness) Qty: 10 0RF meclizine 50 mg tablet 25 - 50 mg PO BID PRN (Reason: dizziness) Qty: 20 0RF metronidazole 500 mg tablet 500 mg PO BID Qty: 14 0RF estradiol [Estrace] 0.01 % (0.1 mg/gram) cream 1 g vaginal 2XW Qty: 42.5 3RF Rx Instructions: Apply daily for 2 weeks, then go to twice weekly for maintenance lisinopril 5 mg tablet 5 mg PO DAILY Qty: 90 1RF metronidazole 0.75 % (37.5mg/5 gram) gel 1 appful vaginal QDAY 5 Days Qty: 70 0RF Follow Up/Referrals: Indiana Chin PA-C [Primary Care Provider] - Stand Alone Forms: [facility] Info Instructions Procedures Lumbar Puncture Pre procedure diagnosis: Headache, neck stiffness, fever Post procedure diagnosis: Headache, neck stiffness, fever Written consent by: patient Verification/time out: correct patient, correct site and correct procedure Reason for procedure: diagnostic Patient Position: upright Skin preparation: betadine Local Anesthetic: lidocaine 1% and with epi Amount of anesthesia used (mL): 5 Spinal Needle Gauge: 20G Interspace Used: L3-L4 Number of attempts: 1 Fluid Initially Obtained: clear Estimated blood loss (if any): none Complications: none Conclusion: patient tolerated procedure
[2025-03-12 12:25] VITALS: BP 130/81; PULSE 78; RESP 16; TEMP 36.2; O2SAT 98; BMI 25.5
--- NOTE | 2025-03-12 12:48 | CRLHL7_ITS ---
For Patients: As a result of the Century Cures Act, medical imaging exams and procedure reports are released immediately into your electronic medical record. You may view this report before your referring provider. If you have questions, please contact your health care provider. INDICATION: Abrupt onset of severe headache TECHNIQUE: CT head without contrast. COMPARISON: MRI brain 05/14/2020 FINDINGS: CSF spaces: Within normal limits for age. Brain parenchyma: The bailey-white differentiation is normal. No sign of mass, hemorrhage, or midline shift. Skull base and calvarium: The visualized paranasal sinuses and mastoid air cells demonstrate no acute or significant findings. The visualized orbits are grossly unremarkable. No skull fractures. IMPRESSION: Unremarkable noncontrast head CT. Please note that all CT scans at this facility use dose modulation, iterative reconstruction, and/or weight-based dosing when appropriate to reduce radiation dose to as low as reasonably achievable. Dictated by Jarred Hood MD @ 03/12/2025 2:13:36 PM (Electronically Signed)
--- NOTE | 2025-03-12 12:48 | CRLHL7_ITS ---
For Patients: As a result of the Century Cures Act, medical imaging exams and procedure reports are released immediately into your electronic medical record. You may view this report before your referring provider. If you have questions, please contact your health care provider. INDICATION: Sudden onset severe headache. TECHNIQUE: CTA head with contrast bolus tracking, 3D angiographic rendering using maximum intensity projection (MIP) and images permanently archived. FINDINGS: There is normal opacification of the intracranial vasculature. There is no large vessel occlusion. No aneurysm is identified. IMPRESSION: Unremarkable head CTA. Please note that all CT scans at this facility use dose modulation, iterative reconstruction, and/or weight-based dosing when appropriate to reduce radiation dose to as low as reasonably achievable. Dictated by Dante Triana MD @ 03/13/2025 5:37:18 AM (Electronically Signed)
--- NOTE | 2025-03-12 12:48 | CRLHL7_ITS ---
For Patients: As a result of the Century Cures Act, medical imaging exams and procedure reports are released immediately into your electronic medical record. You may view this report before your referring provider. If you have questions, please contact your health care provider. INDICATION: Sudden onset severe headache. TECHNIQUE: CTA neck with contrast bolus tracking, 3D angiographic rendering using maximum intensity projection (MIP) and images permanently archived. FINDINGS: There is no significant carotid artery stenosis or dissection. There is no significant vertebral artery stenosis or dissection. The soft tissues of the neck are within normal limits. Degenerative changes are noted in the cervical spine. IMPRESSION: No significant carotid or vertebral artery stenosis or dissection. Please note that all CT scans at this facility use dose modulation, iterative reconstruction, and/or weight-based dosing when appropriate to reduce radiation dose to as low as reasonably achievable. Dictated by Dante Triana MD @ 03/13/2025 5:35:34 AM (Electronically Signed)
[2025-03-12 13:11] LABS: Lactate* 0.8 mmol/L (0.5-1.9)
[2025-03-12 13:15] LABS: Basophils Absolute Auto 0.01 K/uL (0.00-0.30); Basophils Percent Auto 0.2 % (0.0-3.0); Eosinophils Absolute Auto 0.21 K/uL (0.00-0.50); Eosinophils Percent Auto 3.4 % (0.0-7.0); Hematocrit 39.7 % (33.0-51.0); Immature Granulocytes Abs Auto 0.01 K/uL (0.00-0.30); Immature Granulocytes Pct Auto 0.2 %; Lymphocytes Percent Auto 10.9 % (20-44); Mean Corpuscular HGB Conc 33 gm/dL (32-36); Mean Corpuscular Hemoglobin 33 pg (26-34); Mean Corpuscular Volume 101 fL (80-100); Monocytes Percent Auto 9.1 % (0.0-11.0); Neutrophils Percent Auto 76.2 % (42.0-72.0); Platelet Count* 125 K/uL (140-440); RDW Coefficient of Variation % 12.7 % (11.5-15.5); Red Blood Count 3.95 m/uL (4.00-5.20); White Blood Count* 6.17 K/uL (4.50-11.00)
[2025-03-12 13:16] LABS: Slide Review Reflex No
[2025-03-12 13:16] LABS: Creatinine, Point-of-Care* 0.8 mg/dl (0.6-1.3)
--- OUTSIDE RECORDS SUMMARY | 2025-03-12 13:18 | XMS_ITS | Encounter Summary ---
Author Organization [place] Address [facility] [place] [address] Care Team Providers Care Elevator Repairer Name Role Phone Dillon Granados PA-C Primary Care Provid er Keri Malave PA-C Primary Care Pr ovider Unknown, Provider Primary Care [facility] Primary Care Provider [facility] Primary Care Provider Nannette Eng MD Unavailable [phone] Ivonne Shea DO Unavailable [phone] Tresa Marroquin NP Unavailable Unavailable [facility] Primary Ca re Provider Sherita Stephens PA-C Unavailable [phone] Ivonne Shea DO Unavailable [phone] Sherita Stephens PA-C Unavailable [phone] [facility] Unavailabl e Keri Malave PA-C Primary Care Pr ovider Keri Malave PA-C Unavailable Encounter Details Date Type Department Care Team (Late st Contact Info) Description 06/06/2012 MyC Medical Advice [facility] [address] [place] [address] Angeline Mcdonald Social History Tobacco Use Types Packs/Day Years Used Date Smoking Tobacco: Never Smokeless Tobacco: Never Alcohol Use Standard Drinks/Week Comments Yes 0 (1 standard drink = 0.6 oz pur e alcohol) Several glasses of wine/week Comments No Sex and Gender Information Value Date Recorded Sex Assigned at Not on file 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 Gender Identity Not on file Sexual Orientation Not on file documented as of this encounter Plan of Treatment Not on file documented as of this encounter Visit Diagnoses Not on filedocumented in this encounter Care Teams Elevator Repairer Relationship Specialty Start Date End Date Dillon Granados PA-C [address] [place] [address] PCP - General 04/07/04 09/16/13 Keri Malave PA-C [address] [place] [address] PCP - General Physician Falafel Cart Cook 09/17/13 08/09/15 Unknown, Provider PCP - General 08/10/15 10/21/[address] [address] PCP - General 10/22/15 06/26/19 [facility] [address] [place] [address] PCP - General 06/27/19 08/01/23 [facility] [address] [place] [address] PCP - General 08/02/23 03/19/24 Keri Malave PA-C [address] [place] [address] PCP - General Family Medicine 03/20/24 Nannette Eng MD SURGICAL CONSULTS, BRYCE M[address] [address] Assigned Surgical Provider 09/03/22 03/04/25 Ivonne Shea DO [address] [place] [address] Physician Cardiovascular Disease 05/26/23 Tresa Marroquin NP Assigned PCP 06/03/23 03/04/24 Sherita Stephens PA-C [address] [place] [address] Physician Falafel Cart Cook Cardiology 08/10/23 Ivonne Shea DO [address] [place] [address] Assigned Heart and Vascular Provider 07/22/23 12/06/23 Sherita Stephens PA-C [address] [place] [address] Assigned Heart and Vascular Provider 12/07/23 [facility] [address] [address] Assigned PCP 03/05/24 04/03/24 Keri Malave PA-C [address] [place] [address] Assigned PCP 04/04/24 documented as of this encounter
--- OUTSIDE RECORDS SUMMARY | 2025-03-12 13:18 | XMS_ITS | CONTINUITY OF CARE DOCUMENT ---
Author Name User, QIE Address [address] [place] [address] Drive [address] [place] [id number] Organization [facility] ter Address [address] [place] [address] [address] [place] [address] Phone [phone] Care Team Providers Care Western Felt Hat Blocker Name Role Phone User, QIE Unavailable Unavailable HISTORY OF MEDICATION USE Medication Instructions Status Dates Provider Indications Com ments Organization MULTI-VITAMIN DAILY ORAL TABLET po qd active Danisha Gutierrez RN,BSN RN,BSN, [address] [address] CLARITIN 10 MG ORAL CAPSULE po qd active Danisha Gutierrez RN,BSN RN,BSN, [address] [facility] [address]
--- OUTSIDE RECORDS SUMMARY | 2025-03-12 13:18 | XMS_ITS | Encounter Summary ---
Author Organization [place] Address [facility] [address] Care Team Providers Care Chicken Hanger Name Role Phone Nannette Eng MD Unavailable [phone] Ivonne Shea DO Unavailable [phone] Sherita Stephens PA-C Unavailable [phone] Sherita Stephens PA-C Unavailable [facility] Unavailabl e Keri Malave PA-C Primary Care Pr ovider Keri Malave PA-C Unavailable Encounter Details Date Type Department Care Team (Late st Contact Info) Description 03/26/2024 MyC Medical Advice [facility] Gastro[facility]ology Clinic [address] [place] [address] Nilda Fernandez Social History Tobacco [...] often do you attend chur ch or orthodoxy services? Never 05/25/2023 Do you belong to any clubs o r organizations such as pentecostal groups, unions, fraternal or athletic groups, or [...] Answer Date Recorded PHQ-2 Score 0 03/20/2024 [facility] of Occupat ional [facility] - Occupational Stress Questionnaire Answer Date [...] place to sleep or slept in a residential (including now)? 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 Gender Identity Not on file Sexual Orientation Not on file documented as of this encounter Plan of Treatment Not on file documented as of this encounter Visit Diagnoses Not on filedocumented in this encounter Care Teams Chicken Hanger Relationship Specialty Start Date End Date Keri aMlave PA-C [address] [place] [address] PCP - General Family Medicine 03/20/24 Nannette Eng MD SURGICAL CONSULTS, BRYCE [address] [place], [place] [address] Assigned Surgical Provider 09/03/22 03/04/25 Ivonne Shea DO [address] [place] [address] Physician Cardiovascular Disease 05/26/23 Sherita Stephens PA-C [address] [address] Physician Transcription Specialist Cardiology 08/10/23 Sherita Stephens PA-C [address] [place] [address] Assigned Heart and Vascular Provider 12/07/23 [facility] [address] [place] [address] Assigned PCP 03/05/24 04/03/24 Keri Malave PA-C [address] [place] [address] Assigned PCP 04/04/24 documented as of this encounter
--- OUTSIDE RECORDS SUMMARY | 2025-03-12 13:18 | XMS_ITS | Encounter Summary ---
Author Organization [place] Address [facility] [place] [address] Care Team Providers Care Print Cutter Name Role Phone Nannette Eng MD Unavailable [phone] Ivonne Shea DO Unavailable [phone] Tresa Marroquin NP Unavailable Unavailable [facility] Primary Ca re Provider Sherita Stephens PA-C Unavailable [phone] Ivonne Shea DO Unavailable [phone] Sherita Stephens PA-C Unavailable [phone] [facility] Unavailabl e Keri Malave PA-C Primary Care Pr ovider Keri Malave PA-C Unavailable Encounter Details Date Type Department Care Team (Late st Contact Info) Description 08/18/2023 MyC Medical Advice [facility] [address] [place] [address] Naa Leon, RETAIL WIRELESS SALES REPRESENTATIVE Social History Tobacco Use Types Packs/Day Years [...] How often do you attend chur or voodoo services? Never 05/25/2023 Do you belong to any clubs o r organizations such as catholic groups, unions, fraternal or athletic groups, [...] Answer Date Recorded PHQ-2 Score 0 05/25/2023 [facility]at ional Health - [...] place to sleep or slept in a group home (including now)? 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 Gender Identity Not on file Sexual Orientation [...] on filedocumented in this encounter Care Teams Print Cutter Relationship Specialty Start Date End Date Clinic - [facility] [id number] [place] [address] PCP - General 08/02/23 03/19/24 Keri Malave PA-C [address] [place] [address] PCP - General Family Medicine 03/20/24 Nannette Eng MD SURGICAL CONSULTS, [place] [address] [address] Assigned Surgical Provider 09/03/22 03/04/25 Ivonne Shea DO [address] [place] [address] Physician Cardiovascular Disease 05/26/23 Tresa Marroquin NP Assigned PCP 06/03/23 03/04/24 Sherita Stephens PA-C [address] [address] Physician Fancy Stitcher Cardiology 08/10/23 Ivonne Shea DO [address] [place] [address] Assigned Heart and Vascular Provider 07/22/23 12/06/23 Sherita Stephens PA-C [address] [address] Assigned Heart and Vascular Provider 12/07/23 [facility] [address] [place] [address] Assigned PCP 03/05/24 04/03/24 Keri Malave PA-C [address] [place] [address] Assigned PCP 04/04/24 documented as of this encounter
--- OUTSIDE RECORDS SUMMARY | 2025-03-12 13:18 | XMS_ITS | Encounter Summary ---
Author Organization [place] Address [address] [place] [address]. [place] [address] Care Team Providers Care Decorative Engraver Name Role Phone Nannette Eng MD Unavailable [phone] Ivonne Shea DO Unavailable [phone] Sherita Stephens PA-C Unavailable Sherita Stephens PA-C Unavailable Keri Malave PA-C Primary Care Pr ovider Keri Malave PA-C Unavailable Encounter Details Date Type Department Care Team (Late st Contact Info) Description 06/20/2024 MyC Medical Advice [address] [address] Long Iyer DO [address] [place] [id number] Social History Tobacco Use Types Packs/Day Years [...] How often do you attend chur or jain services? Never 05/25/2023 Do you belong to any clubs o r organizations such as gnosticism groups, unions, fraternal or athletic groups, or [...] Answer Date Recorded PHQ-2 Score 0 03/20/2024 [facility] Occupat ional Health - [...] place to sleep or slept in a penitentiary (including now)? 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 Gender Identity Not on file Sexual Orientation Not on file documented as of this encounter Plan of Treatment Not on file documented as of this encounter Visit Diagnoses Not on filedocumented in this encounter Care Teams Decorative Engraver Relationship Specialty Start Date End Date Keri Malave PA-C [address] [place] [address] PCP - General Family Medicine 03/20/24 Nannette Eng MD SURGICAL CONSULTS, BRYCE [address] [place] [address] Assigned Surgical Provider 09/03/22 03/04/25 Ivonne Shea DO [address] [place] [address] Physician Cardiovascular Disease 05/26/23 Sherita Stephens PA-C [address] [place] [address] Physician Cap Sizer Cardiology 08/10/23 Sherita Stephens PA-C [address] [place] [address] Assigned Heart and Vascular Provider 12/07/23 Keri Malave PA-C [address] [place] [address] Assigned PCP 04/04/24 documented as of this encounter
--- OUTSIDE RECORDS SUMMARY | 2025-03-12 13:18 | XMS_ITS | Encounter Summary ---
Author Organization [place] Address [address] [place] [address]. [place] [address] Care Team Providers Care Red [employer] Executive Director Name Role Phone Nannette Eng MD Unavailable [phone] Ivonne Shea DO Unavailable [phone] Sherita Stephens PA-C Unavailable [phone] Sherita Stephens PA-C Unavailable [phone] Keri Malave PA-C Primary Care Pr ovider Keri Malave PA-C Unavailable Encounter Details Date Type Department Care Team (Late st Contact Info) Description 05/08/2024 MyC Medical Advice [facility] [address] [place] [address] Cris Dey RN Social History [...] week 05/25/2023 How often do you attend [facility] or yazdanism services? Never 05/25/2023 Do you belong to any clubs o r organizations such as yazidism groups, unions, fraternal or athletic groups, or [...] Answer Date Recorded PHQ-2 Score 0 03/20/2024 [facility] of Occupat ional [facility] - Occupational Stress Questionnaire Answer Date Recorded [...] place to sleep or slept in a chcf (including now)? 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 Gender Identity Not on file Sexual Orientation Not on file documented as of this encounter Plan of Treatment Not on file documented as of this encounter Visit Diagnoses Not on filedocumented in this encounter Care Teams Red Cross Executive Director Relationship Specialty Start Date End Date Keri Malave PA-C [address] [place] [address] PCP - General Family Medicine 03/20/24 Nannette Eng MD SURGICAL CONSULTS, BRYCE [address] [place], [place] [address] Assigned Surgical Provider 09/03/22 03/04/25 Ivonne Shea DO [address] [place] [address] Physician Cardiovascular Disease 05/26/23 Sherita Stephens PA-C [address] [address] Physician Ball Maker Cardiology 08/10/23 Sherita Stephens PA-C [address] [address] Assigned Heart and Vascular Provider 12/07/23 Keri Malave PA-C [address] [place] [address] Assigned PCP 04/04/24 documented as of this encounter
--- OUTSIDE RECORDS SUMMARY | 2025-03-12 13:18 | XMS_ITS | Encounter Summary ---
Author Organization [place] Address [facility] [place] [address] Care Team Providers Care Flour Inspector Name Role Phone Nannette Eng MD Unavailable [phone] Ivonne Shea DO Unavailable [phone] Tresa Marroquin NP Unavailable Unavailable [facility] Primary Ca re Provider Sherita Stephens PA-C Unavailable [phone] Sherita Stephens PA-C Unavailable [phone] Clinic - [facility] Unavailabl e Keri Malave PA-C Primary Care Pr ovider Keri Malave PA-C Unavailable Encounter Details Date Type Department Care Team (Late st Contact Info) Description 01/08/[address] [facility] [address] [place] [address] Naa Leon, [facility] Social History Tobacco Use Types Packs/Day Years [...] any clubs o r organizations such as uatsdin groups, unions, fraternal or athletic groups, or [...] Answer Date Recorded PHQ-2 Score 0 05/25/2023 [facility] Occupat ional Health - Occupational [...] place to sleep or slept in a skilled nursing (including now)? 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 Gender Identity Not on file Sexual Orientation Not on file documented as of this encounter Plan of Treatment Not on file documented as of this encounter Visit Diagnoses Not on filedocumented in this encounter Care Teams Flour Inspector Relationship Specialty Start Date End Date Clinic - [facility] [address] [place] [address] PCP - General 08/02/23 03/19/24 Keri Malave PA-C [address] [place] [address] PCP - General Family Medicine 03/20/24 Nannette Eng MD SURGICAL CONSULTS, BRYCE [address] [place] [address] Assigned Surgical Provider 09/03/22 03/04/25 Ivonne Shea DO [address] [place] [address] Physician Cardiovascular Disease 05/26/23 Tresa Marroquin NP Assigned PCP 06/03/23 03/04/24 Sherita Stephens PA-C [address] [address] Physician Copper Plate Printer Cardiology 08/10/23 Sherita Stephens PA-C [address] [address] Assigned Heart and Vascular Provider 12/07/23 [facility] [address] [place] [address] Assigned PCP 03/05/24 04/03/24 Keri Malave PA-C [address] [place] [address] Assigned PCP 04/04/24 documented as of this encounter
--- OUTSIDE RECORDS SUMMARY | 2025-03-12 13:18 | XMS_ITS | Encounter Summary ---
Author Organization [place] Address [facility] [place] [address] Care Team Providers Care Asset Analyst Name Role Phone Nannette Eng MD Unavailable [phone] Ivonne Shea DO Unavailable [phone] Tresa Marroquin NP Unavailable Unavailable [facility] Primary Ca re Provider Sherita Stephens PA-C Unavailable [phone] Sherita Stephens PA-C Unavailable [phone] Clinic - [facility] Unavailabl e Keri Malave PA-C Primary Care Pr ovider Keri Malave PA-C Unavailable Encounter Details Date Type Department Care Team (Late st Contact Info) Description 01/08/2024 MyC Medical Advice [facility] [address] [place] [address] Naa Leon, [facility] Social History Tobacco Use Types Packs/Day Years [...] How often do you attend chur or hindu services? 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 Gender Identity Not on file Sexual Orientation Not on file documented as of this encounter Plan of Treatment Not on file documented as of this encounter Visit Diagnoses Not on filedocumented in this encounter Care Teams Asset Analyst Relationship Specialty Start Date End Date Clinic - [facility] [address] [place] [address] PCP - General 08/02/23 03/19/24 Keri Malave PA-C [address] [place] [address] PCP - General Family Medicine 03/20/24 Nannette Eng MD SURGICAL CONSULTS, BRYCE [address] [place] [address] Assigned Surgical Provider 09/03/22 03/04/25 Ivonne Shea DO [address] [place] [address] Physician Cardiovascular Disease 05/26/23 Tresa Marroquin NP Assigned PCP 06/03/23 03/04/24 Sherita Stephens PA-C [address] [address] Physician Switchgear Repairer Cardiology 08/10/23 Sherita Stephens PA-C [address] [address] Assigned Heart and Vascular Provider 12/07/23 [facility] [address] [place] [address] Assigned PCP 03/05/24 04/03/24 Keri Malave PA-C [address] [place] [address] Assigned PCP 04/04/24 documented as of this encounter
--- OUTSIDE RECORDS SUMMARY | 2025-03-12 13:19 | XMS_ITS | Encounter Summary ---
Author Organization [place] Address Pending sale to [facility] [place] [address] Care Team Providers Care Licensed Land Surveyor Name Role Phone Keri Malave PA-C Primary Care Pr ovider Unknown, Provider [facility] Primary Care Provider [facility] Primary Care Provider Nannette Eng MD Unavailable [phone] Ivonne Shea DO Unavailable [phone] Tresa Marroquin NP Unavailable Unavailable [facility] Primary Ca re Provider Sherita Stephens PA-C Unavailable [phone] Ivonne Shea DO Unavailable [phone] Sherita Stephens PA-C Unavailable [phone] [facility] Unavailabl e Keri Malave PA-C Primary Care Pr ovider Keri Malave PA-C Unavailable Reason for Visit * Reason Onset Date Comments Outreach 09/20/2013 [facility] Encounter Details Date Type Department Care Team (Late st Contact Info) Description 09/20/2013 Telephone [facility] [address] [place] [address] Keri Malave PA-C [address] [place] [address] Outreach ([facility]) Social History Tobacco Use Types Packs/Day Years [...] week 05/25/2023 How often do you attend [facility] or evangelical services? Never 05/25/2023 Do you belong to any clubs o r organizations such as yazdanism groups, unions, fraternal or athletic groups, or [...] Answer Date Recorded PHQ-2 Score 0 03/20/2024 [facility] [place] of Occupat ional Health - Occupational Stress [...] place to sleep or slept in a care home (including now)? 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 RCANE RESEARCH TECHNICIAN documented in this encounter Plan of Treatment Not on file documented as of this encounter Visit Diagnoses Not on filedocumented in this encounter Care Teams Licensed Land Surveyor Relationship Specialty Start Date End Date Keri Malave PA-C [address] [place] [address] PCP - General Physician Hr Intern 09/17/13 08/09/15 Unknown, Provider PCP - General 08/10/15 10/21/15 [facility] [address] PCP - General 10/22/15 06/26/19 [facility] [address] [facility] [place] [address] PCP - General 06/27/19 08/01/23 Clinic - [facility] [id number] [place] [address] PCP - General 08/02/23 03/19/24 Keri Malave PA-C [address] [place] [address] PCP - General Family Medicine 03/20/24 Nannette Eng MD SURGICAL CONSULTS, BRYCE MURO [address] [address] Assigned Surgical Provider 09/03/22 03/04/25 Ivonne Shea DO [address] [place] [address] Physician Cardiovascular Disease 05/26/23 Tresa Marroquin NP Assigned PCP 06/03/23 03/04/24 Sherita Stephens PA-C [address] [place] [address] Physician Hr Intern Cardiology 08/10/23 Ivonne Shea DO [address] [place] [address] Assigned Heart and Vascular Provider 07/22/23 12/06/23 Sherita Stephens PA-C [address] [place] [address] Assigned Heart and Vascular Provider 12/07/23 [facility] [address] [place] [address] Assigned PCP 03/05/24 04/03/24 Keri Malave PA-C [address] [place] [address] Assigned PCP 04/04/24 documented as of this encounter
--- OUTSIDE RECORDS SUMMARY | 2025-03-12 13:19 | XMS_ITS | Clinical Summary ---
Author Organization [place] Address [address] [place] [address] Care Team Providers Care Adzing And Boring Machine Feeder Name Role Phone Heshamrobert Ivonne Anisha ORTEGA Unavailable [phone] StebbSherita adams PA-C Unavailable StebbSherita adasm PA-C Unavailable Keri Malave PA-C Primary Care [...] (FLONASE ALLERGY RELIEF) 50 MCG/ACT nasal spray [place] 2 sprays in nostril every 24 hours [...] Date Type Department Care Team Description 01/09/2025 [facility] Medical Advice [facility] [id number] [place] [address] Naa Leon, [facility] Panel Management from Last 3 Months Immunizations [...] Father CABG age 63 (smo ker). First [place] age 62. A-Fib age 78. / age [...] week 05/25/2023 How often do you attend [facility] or mandaen services? Never 05/25/2023 Do you belong to any clubs o r organizations such as christian groups, unions, fraternal or athletic groups, or [...] Answer Date Recorded PHQ-2 Score 0 03/20/2024 [facility] of Occupat ionin Health - Occupational Stress Questionnaire Answer Date [...] place to sleep or slept in a alf (including now)? 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 Gender Identity Not on file Sexual Orientation [...] BILATERAL W/ JEY Routine 11/07/2023 2:24 PM TUG BOAT CAPTAIN Visit for screening mammogram TSH WITH FREE T4 REFLEX Routine 05/29/2023 7:37 AM CDT Thyroid nodule LIPID REFLEX TO DIRECT LDL PANEL Routine 05/29/2023 7:37 AM CDT Screening for lipid disorders ABSTRACT PAP ([facility] EXTERNAL RESULT) Routine 09/04/2020 4:30 PM CDT ABSTRACT HPV ([facility] EXTERNAL RESULT) Routine 09/04/2020 4:30 PM CDT COLONOSCOPY Routine 03/28/2014 7:00 AM CDT HEPATITIS C ANTIBODY Routine 08/19/2010 11:00 AM CDT HIV 1 AND 2 ANTIBODY ([facility]) Routine 11/08/2006 9:20 AM TUG BOAT CAPTAIN from Last 3 Months or Most Recently [...] BLOOD JOSUE MARTINEZ Final Result [facility] [place] [facility] [address] [facility], Room [address] [address] [[email or web address]] * MA Screen with Implants Bilateral w/Jey (11/07/2023 2:24 PM TUG BOAT CAPTAIN) Anatomical Region Laterality Modality Breast Bilateral Mammography Impressions 11/09/2023 10:29 AM TUG BOAT CAPTAIN IMPRESSION: ACR BI-RADS Category 2: Benign RECOMMENDED FOLLOW-UP: Annual routine screening mammogram The results and recommendations of this examination will be communicated to the patient. Dany Dominguez MD Narrative 11/09/2023 10:29 AM TUG BOAT CAPTAIN BILATERAL FULL FIELD DIGITAL SCREENING MAMMOGRAM WITH TOMOSYNTHESIS Performed on: 11/07/23 Compared to: 07/25/2022 and 10/23/2015 Technique: This study was evaluated with the assistance of Computer-Aided Detection. Breast Tomosynthesis was used in interpretation. Findings: The breasts have scattered areas of fibroglandular density. There are breast augmentation changes in both breasts. There is no radiographic evidence of malignancy. us Tresa Lopez LOG YARD MANAGER IMG MAMMOGRAPHY ORDERABLES Fi nal Result * TSH with free T4 reflex (05/29/2023 7:37 AM CDT) TSH 2.45 0.30 - 4.20 uIU/mL 05/29/2023 2:15 PM CDT [facility] Blood BLOOD SPECIMEN / Unknown Venipuncture / Unknown 05/29/2023 7:37 AM CDT 05/29/2023 7:37 AM CDT us Tresa Marroquin LOG YARD MANAGER LAB - BLOOD ORDERABLES Final Result [facility] [address] [facility], [address] [address], [facility] [phone] * (ABNORMAL) Lipid panel reflex to direct [...] or equal to 220 mg/dL Tresa Marroquin LOG YARD MANAGER LAB - BLOOD ORDERABLES Final Result [facility] [place] [facility] [address] [facility], [address] [place] [address], [facility] [phone] * Abstract HPV (HIM External Result) (09/04/2020 4:30 PM CDT) HPV Abstract See Scanned Document [facility] 09/04/2020 4:30 PM CDT Narrative [facility] - 09/04/2020 4:30 PM CDT Kaity [...] LAB - HIM EXTERNAL RESULT Final Result [facility] [address] [place] [address], [facility] * Abstract PAP (HIM External Result) (09/04/2020 4:30 PM CDT) PAP-ABSTRACT See Scanned Document [facility] 09/04/2020 4:30 PM CDT Narrative [facility] - 09/04/2020 4:30 PM CDT Kaity [...] LAB - HIM EXTERNAL RESULT Final Result [facility] [address] [place] [address], [facility] * COLONOSCOPY (03/28/2014 7:00 AM CDT) COLONOSCOPY [facility] Patient Name: Pito Hurley Procedure Date: [...] oxygen saturations were monitored continuously. The [id number] was introduced through the anus and advanced [...] AM CDT 08/19/2010 10:47 AM CDT Garret Proctor MD LAB - BLOOD ORDERABLES Final Re sult [facility] * HIV 1 and 2 Antibody (11/08/2006 9:20 AM TUG BOAT CAPTAIN) HIV 1&2 Antibody Negative NEG [facility] 11/08/2006 9:20 AM TUG BOAT CAPTAIN 11/08/2006 9:24 AM TUG BOAT CAPTAIN Raquel Wall MD LAB - BLOOD ORDERABLES Fin al Result [facility] from Last 3 Months or Most Recently Relevant to Health Maintenance Insurance [facility] Care Teams Adzing And Boring Machine Feeder Relationship Specialty Start Date End Date Keri Malave PA-C [address] [place] [address] PCP - General Family Medicine 03/20/24 Ivonne Shea DO [address] [place] [address] Physician Cardiovascular Disease 05/26/23 Sherita Stephens PA-C [address] [address] Physician Senior Adults Director Cardiology 08/10/23 Sherita Stephens PA-C [address] [address] Assigned Heart and Vascular Provider 12/07/23 Keri Malave PA-C [address] [place] [address] Assigned PCP 04/04/24
--- OUTSIDE RECORDS SUMMARY | 2025-03-12 13:19 | XMS_ITS | Encounter Summary ---
Author Organization [place] Address [facility] [place] [address] Care Team Providers Care Credit Collections Clerk Name Role Phone Keri Malave PA-C Primary Care Pr ovider Unknown, Provider Primary [facility] Primary Care Provider [facility] Primary Care Provider Nannette Eng MD Unavailable [phone] Ivonne Shea DO Unavailable [phone] Tresa Marroquin NP Unavailable Unavailable [facility] Primary Ca re Provider Sherita Stephens PA-C Unavailable [phone] Ivonne Shea DO Unavailable [phone] Sherita Stephens PA-C Unavailable [phone] [facility] Unavailabl e Keri Malave PA-C Primary Care Pr ovider Keri Malave PA-C Unavailable Encounter Details Date Type Department Care Team (Late st Contact Info) Description 12/24/2013 MyC Medical Advice [facility] [address] [place] [address] [facility] Social History Tobacco Use Types Packs/Day Years Used Date Smoking Tobacco: Never Smokeless Tobacco: Never Alcohol Use Standard Drinks/Week Comments Yes 0 (1 standard drink = 0.6 oz pur e alcohol) Several glasses of wine/week Comments No Sex and Gender Information Value Date Recorded Sex Assigned at Not on file 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 Gender Identity Not on file Sexual Orientation Not on file documented as of this encounter Plan of Treatment Not on file documented as of this encounter Visit Diagnoses Not on filedocumented in this encounter Care Teams Credit Collections Clerk Relationship Specialty Start Date End Date Keri Malave PA-C [address] [place] [address] PCP - General Physician Edge Banding Off Bearer 09/17/13 08/09/15 Unknown, Provider PCP - General 08/10/15 10/21/15 [facility] [place] [address] [place] [address] PCP - General 10/22/15 06/26/19 [facility] [address] [place] [address] PCP - General 06/27/19 08/01/23 [facility] [address] [place] [address] PCP - General 08/02/23 03/19/24 Keri Malave PA-C [address] [place] [address] PCP - General Family Medicine 03/20/24 Nannette Eng MD [facility]SULTS, [facility] [address] [place] [address] Assigned Surgical Provider 09/03/22 03/04/25 Ivonne Shea DO [address] [place] [address] Physician Cardiovascular Disease 05/26/23 Tresa Marroquin NP Assigned PCP 06/03/23 03/04/24 Sherita Stephens PA-C [address] [address] Physician Edge Banding Off Bearer Cardiology 08/10/23 Ivonne Shea DO [address] [place] [address] Assigned Heart and Vascular Provider 07/22/23 12/06/23 Sherita Stephens PA-C [address] [address] Assigned Heart and Vascular Provider 12/07/23 [facility] [address] [place] [address] Assigned PCP 03/05/24 04/03/24 Keri Malave PA-C [address] [place] [address] Assigned PCP 04/04/24 documented as of this encounter
--- OUTSIDE RECORDS SUMMARY | 2025-03-12 13:19 | XMS_ITS | Clinical Summary ---
Author Organization [facility] Address [address] [place] [address] Care Team Providers Care Slab Tripper Name Role Phone Unassigned, Provider Primary Care Provider Unava ilable Source Comments You are receiving this document as you are listed as the primary care provider,follow-up provider, or the patient has been referred to you for consultation.This is in compliance with the Medicare andSt. [facility] Cent[facility]aid EHR Incentive Program,which states Providers who transition their patient to another setting of careor provider of care or refers their patient to another provider of care shouldprovide summary care record for each transition of care or referral. [facility] Allergies No known active allergies [...] patient's age to complete this topic Insurance [facility] [id number] Care Teams Slab Tripper Relationship Specialty Start Date End Date Unassigned, Provider [address] [place] [address] PCP - General 08/28/02
--- OUTSIDE RECORDS SUMMARY | 2025-03-12 13:19 | XMS_ITS | Encounter Summary ---
Author Organization [place] Address [facility] [place] [address] Care Team Providers Care Station Jailer Name Role Phone Dillon Granados PA-C Primary Care Provid er Keri Malave PA-C Primary Care Pr ovider Unknown, Provider Primary Care [facility] Primary Care Provider [facility] Primary Care Provider Nannette Eng MD Unavailable [phone] Ivonne Shea DO Unavailable [phone] Tresa Marroquin NP Unavailable Unavailable [facility] Primary Ca re Provider Sherita Stephens PA-C Unavailable [phone] Ivonne Shea DO Unavailable [phone] Sherita Stephens PA-C Unavailable [phone] [facility] Unavailabl e Keri Malave PA-C Primary Care Pr ovider Keri Malave PA-C Unavailable Encounter Details Date Type Department Care Team (Late st Contact Info) Description 05/30/[address] 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 Gender Identity Not on file Sexual Orientation Not on file documented as of this encounter Plan of Treatment Not on file documented as of this encounter Visit Diagnoses Not on filedocumented in this encounter Care Teams Station Jailer Relationship Specialty Start Date End Date Dillon Granados PA-C [address] [place] [address] PCP - General 04/07/04 09/16/13 Keri Malave PA-C [address] [place] [address] PCP - General Physician Dough Mixer 09/17/13 08/09/15 Unknown, Provider PCP - General 08/10/15 10/21/[address] [address] PCP - General 10/22/15 06/26/19 [facility] [address] [place] [address] PCP - General 06/27/19 08/01/23 [facility] [address] [place] [address] PCP - General 08/02/23 03/19/24 Keri Malave PA-C [address] [address] PCP - General Family Medicine 03/20/24 Nannette Eng MD SURGICAL CONSULTS, BRYCE [address] [address] Assigned Surgical Provider 09/03/22 03/04/25 Ivonne Shea DO [address] [place] [address] Physician Cardiovascular Disease 05/26/23 Tresa Marroquin NP Assigned PCP 06/03/23 03/04/24 Sherita Stephens PA-C [address] [place] [address] Physician Dough Mixer Cardiology 08/10/23 Ivonne Shea DO [address] [place] [address] Assigned Heart and Vascular Provider 07/22/23 12/06/23 Sherita Stephens PA-C [address] [place] [address] Assigned Heart and Vascular Provider 12/07/23 [facility] [address] [address] Assigned PCP 03/05/24 04/03/24 Keri Malave PA-C [address] [place] [address] Assigned PCP 04/04/24 documented as of this encounter
[2025-03-12 13:28] LABS: Albumin* 4.1 g/dL (3.3-5.0); Chloride* 104 mmol/L (96-114); Sodium* 136 mmol/L (135-149)
[2025-03-12 13:31] LABS: Alanine Aminotransferase* 75 U/L (4-35); Aspartate Amino Transferase* 80 U/L (12-35); Blood Urea Nitrogen* 11 mg/dL (7-30); Creatinine* 0.7 mg/dL (0.5-1.5); Est. Creatinine Clearance* 54.61; Estimated Glomerular Filt Rate 98 ml/min
[2025-03-12 13:32] LABS: Alkaline Phosphatase* 69 U/L (40-150); Anion Gap 7 mEq/L (7-15); Bilirubin Total* 0.7 mg/dL (0.1-1.5); Calcium* 8.9 mg/dL (8.4-10.6); Carbon Dioxide* 25 mmol/L (20-32); Glucose* 103 mg/dL (60-115); Total Protein* 6.7 g/dL (6.0-8.3)
[2025-03-12 13:34] LABS: C Reactive Protein* 4.3 mg/dL (0.5-1.0)
[2025-03-12 13:50] LABS: Appearance Urine Clear (Clear); Bilirubin Urine Negative (Negative); Blood Urine Negative (Negative); Color Urine Yellow (Yellow); Glucose Urine Negative (Negative); Ketones Urine Negative (Negative); Leukocyte Esterase Urine Negative (Negative); Nitrite Urine Negative (Negative); Protein Urine Negative (Negative); RBC Urine 0-2 (0-2); Specific Gravity Urine <= 1.005 (1.000-1.030); Urobilinogen Urine 0.2 (0.2-1.0); WBC Urine 0-2 (0-5)
[2025-03-12 13:55] LABS: PCR FLU A Negative PCR FLU A (Negative); PCR FLU B Negative PCR FLU B (Negative); SARS PCR* Negative SARS-CoV-2 (Negative)
[2025-03-12] MEDS: diphenhydrAMINE 50 MG/ML inj 12.5 MG IVP (14:13)
[2025-03-12] MEDS: KETOROLAC 15 MG/ML inj IVP (14:13)
[2025-03-12] MEDS: 0.9 % SODIUM CHLORIDE 1000 ml 1,000 ML IV (14:14)
[2025-03-12] MEDS: METOCLOPRAMIDE HCL 5 MG/ML INJ 10 MG IVP (14:14)
[2025-03-12 14:47] VITALS: BP 113/75; PULSE 84; RESP 16; O2SAT 98
[2025-03-12] MEDS: ACETAMINOPHEN 500 MG TABLET 1000 MG PO (15:17)
[2025-03-12 17:50] LABS: CSF Mononuclear Cells 100 %; CSF Polynuclear Cells 0 %; RBC, CSF 0 Cells/uL; WBC, CSF 1 Cells/uL
[2025-03-12 18:39] LABS: Glucose, CSF* 52 mg/dL (40-70); Total Protein, CSF 57 mg/dL (15-45)
[2025-03-12] MEDS: DOXYCYCLINE HYCLATE 100 MG PO (19:01)
--- NOTE | 2025-03-12 19:52 | ED.NURSE ---
Lab called after pt was discharged to notify ED that pt's blood sample was not enough to send out the tick panel. Pt had already left for the evening. Pt was called and updated about this, pt stated she could stop at the hospital lab after an appt here tomorrow afternoon. Lab was called and updated that pt would be coming in the afternoon to have this panel drawn. Lab confirmed this would be acceptable and they would make a note for the lab staff tomorrow.
[2025-03-12 20:38] LABS: Appearance CSF Clear (Clear); Color CSF Colorless (Colorless)
[2025-03-15 16:08] LABS: Lyme ELISA Reflex 0.08 IV (<=0.90)
[2025-03-16 22:50] LABS: Anaplasma phagocyt PCR Not Detected; Babesia microti by PCR Not Detected; Babesia species by PCR Not Detected; Ehrlichia chaffeensis by PCR Not Detected; Ehrlichia ewingii/canis by PCR Not Detected; Ehrlichia muris-like by PCR Not Detected
== END 2025-03-12 19:06 | disposition home or self-care (01) ==
PROVIDERS: Emergency Provider Emergency Medicine; PCP Physician Assistant Medical
DX: R51.9 Headache, unspecified (principal); M54.2 Cervicalgia; R50.9 Fever, unspecified
CPT/HCPCS: 62270; 36415; 70450; 70496; 70498; 80053; 81001; 82565; 82945; 83605; 84157; 85025; 86140; 86618; 87070; 87468; 87469; 87484; 87631; 87798; 89051; 96374; 96375; 99284; 99285; A9270; J1200; J1885; J2765; J7030; Q9967

== ENCOUNTER 2025-03-13 14:04 | Outpatient (CLI) | payer BC, SELFPAY ==
--- NOTE | 2025-03-13 15:00 | CRLHL7_ITS ---
For Patients: As a result of the Century Cures Act, medical imaging exams and procedure reports are released immediately into your electronic medical record. You may view this report before your referring provider. If you have questions, please contact your health care provider. INDICATION: postmenopausal spotting COMPARISON: none TECHNIQUE: 2D bailey scale and color Doppler images were acquired of the pelvis using a transabdominal and transvaginal approach. FINDINGS: Sonographic images demonstrate a normal size and smooth outer contour of the uterus. Uterus measures 5.9 cm in length by 5.2 cm in AP diameter by 3.7 cm in transverse dimension. Uterine fibroid is present which measures 1.7 x 1.7 x 1.8 cm. This is located within the anterior mid/fundal uterine myometrium and is partially exophytic. The endometrial lining measures 2.8 mm in composite thickness. The right ovary measures 2.6 x 1.6 x 1.6 cm in size and the left ovary is not visualized. The right ovary demonstrates normal arterial and venous blood flow on color Doppler analysis. There are no suspicious fluid collections within the cul-de-sac. IMPRESSION: 1.8 cm uterine fibroid. Endometrium measures 2.8 millimeters. Mild endometrial fluid is present. Dictated by Francisco Kay MD @ 03/13/2025 5:07:18 PM (Electronically Signed)
== END 2025-03-13 14:05 | disposition home or self-care (01) ==
LOC: US 14:07
PROVIDERS: PCP Physician Assistant Medical; Visit Provider Physician Assistant Medical
DX: N95.0 Postmenopausal bleeding (principal); D25.9 Leiomyoma of uterus, unspecified; R93.89 Abnormal findings on diagnostic imaging of other specified body structures; R10.2 Pelvic and perineal pain
CPT/HCPCS: 76830; 76856; 99281

== ENCOUNTER 2025-08-01 08:25 | Outpatient (CLI) | payer BC, SELFPAY | END 2025-08-01 08:26 | disposition home or self-care (01) | LOC: NFLDREF 08-06 11:59 | PROVIDERS: PCP Physician Assistant Medical; Referring Provider Physician Assistant Medical; Visit Provider Physician Assistant Medical | DX: Z00.00 Encounter for general adult medical examination without abnormal findings (principal); D69.6 Thrombocytopenia, unspecified; Z78.0 Asymptomatic menopausal state | CPT/HCPCS: 80053; 80061; 82306; 82746; 84439; 84443; 86703; 86803 ==

== ENCOUNTER 2025-08-28 12:44 | Outpatient (CLI) | payer BC, SELFPAY ==
[2025-08-28 13:39] VITALS: BP 134/82; PULSE 93; RESP 16
--- NOTE | 2025-08-28 13:52 | W.PM.STED ---
Stress Test Note Date Date Seen: 08/28/25 Date of test: 08/28/25 Providers Primary care provider: Indiana Chin Stress test physician: Jonathan Brian Stress Test Note Stress test ordered: Stress Echo Indication for test: dizziness, atypical chest pain Stress test medicine: None Results discussion: This very nice patient presents for the above test, after discussion the risks benefits and side effects of the test, patient would like to continue. Cardiac stress test medical history form is reviewed entirely. Pretest EKG shows normal sinus rhythm with a ventricular rate of 83, blood pressure 104 and 72. Incomplete right bundle-branch block morphology is noted. Standard Blaze protocol is done over a time course of 10 minutes, she had a metabolic equivalent of 11.5 Mets. With a maximum heart rate of 159, which is 119% of the target. Review of the tracing is done, small ST wave changes of 2 mm noted both inferiorly and laterally. She remained asymptomatic, with no anginal equivalents noted. And had an excellent functional response with normal conditioning. Impression: Negative subjective, positive objective with ST depression noted inferior and laterally pain Follow up suggested: I did review with the tech her echo, it was excellent I do not see any gross wall motion abnormalities. Pending review by Cardiology and clinical correlation with this will be needed, but I suspect that this is false positive. Patient left this testing facility in good condition there were no complications.
== END 2025-08-28 13:42 | disposition home or self-care (01) ==
LOC: STRESS 12:44
PROVIDERS: PCP Physician Assistant Medical; Visit Provider Physician Assistant Medical
DX: R42 Dizziness and giddiness (principal); R06.00 Dyspnea, unspecified; R94.31 Abnormal electrocardiogram [ECG] [EKG]
CPT/HCPCS: 93016; 93325; 93351

== ENCOUNTER 2025-10-21 14:46 | Outpatient (CLI) | payer BC, SELFPAY ==
--- NOTE | 2025-10-21 15:00 | CRLHL7_ITS ---
For Patients: As a result of the Century Cures Act, medical imaging exams and procedure reports are released immediately into your electronic medical record. You may view this report before your referring provider. If you have questions, please contact your health care provider. INDICATION: BILATERAL SCREENING MAMMOGRAM, ASYMPTOMATIC 65 Y/O FEMALE COMPARISON: 07/25/2022, 11/19/2020, 01/16/2019 TECHNIQUE: Digital mammogram in CC and MLO projections including computer-aided detection (CAD) and tomosynthesis. BREAST COMPOSITION: The breasts are almost entirely fatty. FINDINGS: No suspicious findings. ASSESSMENT: BI-RADS 2 Benign RECOMMENDATION: Annual screening mammogram. A lay language report of this examination will be provided to the patient. Dictated by: Francisco Kay MD @ 10/22/2025 12:09:02 (Electronically Signed)
== END 2025-10-21 14:47 | disposition home or self-care (01) ==
LOC: MAMMO 14:46
PROVIDERS: PCP Physician Assistant Medical; Visit Provider Physician Assistant Medical
DX: Z12.31 Encounter for screening mammogram for malignant neoplasm of breast (principal); Z98.82 Breast implant status
CPT/HCPCS: 77063; 77067

== ENCOUNTER 2025-11-07 10:00 | Outpatient (CLI) | payer BC, SELFPAY | END 2025-11-07 10:01 | disposition home or self-care (01) | LOC: NFLDREF 11-10 13:24 | PROVIDERS: PCP Physician Assistant Medical; Referring Provider Physician Assistant Medical; Visit Provider Physician Assistant Medical | DX: E03.9 Hypothyroidism, unspecified (principal) | CPT/HCPCS: 84443 ==